=== PATIENT | female | born 1945 | race Caucasian/White ===

== ENCOUNTER → 2019-01-12 | Outpatient (CLI) | payer MEDICARE, OTHER, SELFPAY ==
--- NOTE | 2019-01-12 14:01 | BI_ITS ---
MAMMOGRAPHY - BILATERAL SCREENING 3-D TOMOSYNTHESIS REASON FOR EXAM: Female, 73 years old. Bilateral Screening 3-D tomosynthesis PERTINENT HISTORY: Great-grandmother at age 83 and maternal cousin at age 67 with breast cancer.. TECHNIQUE: 2-D mammograms and 3-D Tomosynthesis of the breast (s) were performed. CAD was performed. COMPARISON: January 23, 2016. FINDINGS: The breast composition is composed of scattered fibroglandular density. Scattered benign calcifications are seen. No dense spiculated masses or suspicious microcalcifications are identified. No architectural distortion is identified. There is no skin thickening or retraction There are stable, scattered, typically benign appearing calcifications. There is a stable subcentimeter right subareolar well-circumscribed nodule. There is a stable, 5.9 mm well-circumscribed nodule within the deep inner left breast.. There has been no significant change since the prior study. BI/SCREENING MAMM (CAD), BILAT IMPRESSION: No mammographic signs of malignancy. Routine yearly mammograms recommended. ASSESSMENT CATEGORY: BIRADS Category 2: Benign. A letter regarding these results will be sent to the patient by the facility within 30 days. FOLLOW UP RECOMMENDATION: Yearly follow up mammogram recommended. (A) Approximately 10% of breast cancers are not detected by mammography. A normal mammogram should not delay biopsy of a clinically suspicious abnormality. Electronically Signed: Ayaz Hooper MD at 14:47 EDT , Service support ,
--- NOTE | 2019-01-12 14:12 | BD_ITS ---
STUDY: DUAL ENERGY X-RAY ABSORPTIOMETRY / DXA REASON FOR EXAM: Female, 73 years old. Osteoporosis screening. TECHNIQUE: Bone Mineral Density (BMD) measurements of lumbar spine and bilateral hips were obtained. COMPARISON: June 16, 2016. FINDINGS: Lumbar Spine (L1-L3): g/cm2 (0.909) / T-score (-2.2) / Z-score (-0.5) Left Femur Total: g/cm2 (0.811) / T-score (-1.6) / Z-score (0.0) Left Femoral Neck: g/cm2 (0.846) / T-score (-1.4) / Z-score (0.4) Right Femur Total: g/cm2 (0.831) / T-score (-1.4) / Z-score (0.2) Right Femoral Neck: g/cm2 (0.805) / T-score (-1.7) / Z-score (0.1) Compared with the T-Scores on the most recent prior examination were: Lumbar Spine (L1-L4): There has been worsening of bone density since the previous examination. Left Femur Total: .There has been minimal worsening of bone density since the previous examination. Right Femur Total: .There has been worsening of bone density since the previous examination. BD/Dexa Bone Density Study IMPRESSION: The patient is considered osteoporotic based on L2 vertebral body T score of -2.6 as outlined below according to World Syed Organization (WHO) criteria with a high fracture risk. There has been worsening of bone density since the previous examination. Reference Information: The T-score is the number of standard deviations above or below the standard which is normal for young adults at their peak bone mineral density. The World Health Organization (WHO) interprets the T-scores as follows: Above -1 Normal bone density Between -1 and -2.5 Osteopenia Equal to / or below -2.5 Osteoporosis As a practical clinical guideline, osteopenia may be graded as follows: Mild -1 through -1.5 Moderate -1.6 through -2.0 Severe -2.1 through -2.4 The Z-score is the number of standard deviations above or below age-matched controls. A Z-score of less than -1.5 would be considered abnormal. References: 1. NIH Osteoporosis and Related Bone Diseases http://www.osteo.org 2. International Society for Clinical Densitometry http://www.iscd.org 3. National Osteoporosis Foundation http://www.nof.org Electronically Signed: Ayaz Hooper MD at 11:22 EDT , Service support ,
== END | disposition home or self-care (01) ==
PROVIDERS: Family Provider Nurse Practitioner; PCP Nurse Practitioner; Referring Provider Nurse Practitioner; Visit Provider Nurse Practitioner
DX: Z12.31 Encounter for screening mammogram for malignant neoplasm of breast (principal); Z78.0 Asymptomatic menopausal state
CPT/HCPCS: 77063; 77067; 77080

== ENCOUNTER → 2019-02-27 | Outpatient (CLI) | payer MEDICARE, OTHER, SELFPAY ==
--- NOTE | 2019-02-27 11:00 | US_ITS ---
STUDY: ULTRASOUND BREAST - LEFT REASON FOR EXAM: Female, 73 years old. Abnormal screening mammogram. TECHNIQUE: Axial and longitudinal images of the LEFT breast were performed with a high resolution ultrasound transducer. COMPARISON: Comparison is made with prior mammogram dated January 12, 2019 and prior ultrasound of the left breast dated April 12, 2017. FINDINGS: LEFT Breast: There is a 4 mm x 6 mm x 2 mm well-defined hypoechoic nodule at the 11:00 position in the breast at 3 centimeters from the nipple. This most likely represents a small lymph node. A follow-up sonogram in 4 months is recommended. US/Breast Limited Unilateral IMPRESSION: 4 mm x 6 mm x 2 mm well-defined hypoechoic nodule at the 11:00 position of the breast at 3 cm from the nipple. A four-month follow-up sonogram is recommended. ASSESSMENT CATEGORY: BIRADS Category 3: Probably Benign - Short-Interval Follow-up Suggested. A letter regarding these results will be sent to the patient by the facility within 30 days. Electronically Signed: Syed Lemus, at 13:10 EDT , Service support ,
== END | disposition home or self-care (01) ==
LOC: OPUS 10:58
PROVIDERS: Family Provider Nurse Practitioner; PCP Nurse Practitioner; Referring Provider Nurse Practitioner; Visit Provider Nurse Practitioner
DX: R92.8 Other abnormal and inconclusive findings on diagnostic imaging of breast (principal); N63.0 Unspecified lump in unspecified breast
CPT/HCPCS: 76642

== ENCOUNTER → 2019-05-22 16:14 | Outpatient (CLI) | payer MEDICARE, SELFPAY ==
[2017-04-28 06:30] VITALS: BMI 27.1
--- NOTE | 2019-05-22 16:20 | RAD_ITS ---
STUDY: X-RAY - LEFT ANKLE REASON FOR EXAM: Left ankle pain, surgery 3 years ago. TECHNIQUE: 3 view(s) of the ankle. COMPARISON: Radiographs of the foot 09/10/2015. FINDINGS: There is osteopenia. Normal visualized distal tibia and fibula. There is enthesopathy of the medial malleolus. There is an anterior osteophyte of the distal tibia without joint space narrowing of the tibiotalar articulation. There is intact orthopedic hardware with osseous fusion of the posterior subtalar, talonavicular and calcaneocuboid articulations. There is a small plantar calcaneal enthesophyte. The soft tissue structures are unremarkable. RAD/Ankle min 3 Views IMPRESSION: Osseous fusion of the posterior subtalar, talonavicular and calcaneocuboid articulations. Anterior osteophyte of the distal tibia. Enthesopathy of the calcaneus and medial malleolus. Electronically Signed: Sunday Brannon MD at 15:38 EDT Tel , Service support ,
== END ==
PROVIDERS: Family Provider Nurse Practitioner; PCP Nurse Practitioner; Referring Provider Nurse Practitioner; Visit Provider Nurse Practitioner
DX: M25.572 Pain in left ankle and joints of left foot (principal)
CPT/HCPCS: 73610

== ENCOUNTER → 2019-08-25 14:51 | Outpatient (CLI) | payer MEDICARE, SELFPAY ==
--- NOTE | 2019-08-25 14:56 | US_ITS ---
STUDY: ULTRASOUND BREAST - LEFT REASON FOR EXAM: Female, 73 years old. Four-month follow-up examination. TECHNIQUE: Axial and longitudinal images of the LEFT breast were performed with a high resolution ultrasound transducer. # OF IMAGES: 23 COMPARISON: Comparison is made with prior ultrasound of the left breast dated February 27, 2019. FINDINGS: LEFT Breast: Stable appearance of the 4 mm x 7 mm x 2 mm well-defined hypoechoic nodule at the 11:00 position of the breast at 3 cm from the nipple. This appears to be a small benign appearing lymph node. Adjacent to this, there is a 5 mm x 6 mm x 4 mm well-defined hypoechoic nodule at the 11:00 position the breast at 4 cm from the nipple. A biopsy is recommended for further evaluation. US/Breast Limited Unilateral IMPRESSION: Stable nodule at the 11:00 position of the breast at 3 cm from nipple. New 5 mm x 6 mm x 4 mm hypoechoic well-defined nodule at the 11:00 position the breast at 4 cm from the nipple. Biopsy is recommended. ASSESSMENT CATEGORY: BIRADS Category 4: Suspicious - Biopsy Should Be Considered. A letter regarding these results will be sent to the patient by the facility within 30 days. Electronically Signed: Syed Lemus, at 8:45 EST , Service support ,
== END ==
PROVIDERS: Family Provider Nurse Practitioner; PCP Nurse Practitioner; Referring Provider Nurse Practitioner; Visit Provider Nurse Practitioner
DX: R92.8 Other abnormal and inconclusive findings on diagnostic imaging of breast (principal)
CPT/HCPCS: 76642

== ENCOUNTER → 2020-02-15 13:18 | Outpatient (CLI) | payer MEDICARE, SELFPAY ==
[2017-04-28 06:30] VITALS: BMI 27.1
--- NOTE | 2020-02-15 13:20 | BI_ITS ---
MAMMOGRAPHY - BILATERAL DIAGNOSTIC REASON FOR EXAM: Female, 74 years old. Six-month follow-up for ultrasound-guided left breast biopsy. PERTINENT HISTORY: Great-grandmother with breast cancer. TECHNIQUE: Digital bilateral breast kaylin (3D mammographic acquisition) in the CC and MLO projections. 2-D mediolateral oblique (MLO) and craniocaudad (CC) views of both breasts were obtained. CAD: Full Field Digital Mammography with Computer Added Detection was performed. COMPARISON: Comparison is made with prior examination dated January 12, 2019 and August 25, 2019. FINDINGS: Breast Composition: There are scattered areas of fibroglandular density. There are no dominant masses or suspicious calcifications. A tissue clip marker is seen within a small nodule in the central medial portion of the left breast. The nodular densities decrease in size as compared to prior study. No other significant abnormalities are identified. BI/DIAG MAMM W/CAD, BILAT IMPRESSION: Status post ultrasound-guided biopsy of a nodular density in the central medial portion of the left breast as described. The nodular density has decreased in size. One year follow-up recommended. (A) ASSESSMENT CATEGORY: BIRADS Category 2: Benign. A letter regarding these results will be sent to the patient by the facility within 30 days. Approximately 10% of breast cancers are not detected by mammography. A normal mammogram should not delay biopsy of a clinically suspicious abnormality. Electronically Signed: Syed Lemus, at 14:40 EDT , Service support ,
--- NOTE | 2020-02-15 13:20 | US_ITS ---
STUDY: ULTRASOUND BREAST - LEFT REASON FOR EXAM: Female, 74 years old. Prior left ultrasound-guided breast biopsy. TECHNIQUE: Axial and longitudinal images of the LEFT breast were performed with a high resolution ultrasound transducer. # OF IMAGES: 14 COMPARISON: Comparison is made with prior mammogram done earlier in the day as well as prior sonogram of the left breast dated August 25, 2019. FINDINGS: LEFT Breast: There is a 7 mm x 3 mm x 3 mm well-defined hypoechoic nodule at 11:00 position breast 3 cm from the nipple. This most likely represents a small lymph node. Adjacent to this, there is a stable 8 mm x 7 mm 2 mm well-defined hypoechoic nodule at 11:00 position of the breast 4 cm from nipple. A tissue clip marker is seen within it. US/Breast Limited Unilateral IMPRESSION: Stable sonogram. Prior ultrasound-guided biopsy of the 8 mm x 7 mm x 2 mm nodular density at the 11:00 position of the breast for sinusitis on the nipple. ASSESSMENT CATEGORY: BIRADS Category 2: Benign. A letter regarding these results will be sent to the patient by the facility within 30 days. Electronically Signed: Syed Lemus, at 15:15 EDT , Service support ,
== END ==
PROVIDERS: PCP Nurse Practitioner; Referring Provider Surgery; Visit Provider Surgery
DX: R92.8 Other abnormal and inconclusive findings on diagnostic imaging of breast (principal)
CPT/HCPCS: 76642; 77062; 77066; G0279

== ENCOUNTER → 2021-02-12 07:06 | Outpatient (CLI) | payer MEDICARE, SELFPAY ==
[2020-02-22 13:39] VITALS: BMI 27.1
--- NOTE | 2021-02-12 07:11 | ECHOD_ITS ---
Reason For Study: Palps Procedure This was a 2D Doppler, Color Flow transthoracic echocardiogram. Exam performed in department. Left Ventricle Normal LV size. Left ventricular systolic function is normal. The estimated ejection fraction is 60 %. Stage 2 diastolic dysfunction. No regional wall motion abnormalities noted. Right Ventricle Normal RV size. Normal systolic function. Atria Normal left atrium. Normal right atrium. Mitral Valve Normal mitral valve. Trivial eccentric mitral valve insufficiency. Tricuspid Valve Normal tricuspid valve. Mild tricuspid valve insufficiency. Pulmonary artery systolic pressure is 28 mmHg. Aortic Valve Normal aortic valve. Trisinus/trileaflet aortic valve. Pulmonic Valve Normal pulmonic valve. Great Vessels Normal aortic root. The pulmonary artery is normal size. Normal inferior vena cava. Pericardium/Pleural No pericardial effusion. MMode/2D Measurements & Calculations LVIDd: 3.8 cm IVSd: 1.1 cm Ao root diam: 3.0 cm LVIDs: 2.2 cm LVPWd: 0.95 cm RVDd: 3.8 cm FS: 41.2 % LAV(MOD-bp): 45.0 ml LVAd ap4: 25.6 cm2 SV(MOD-sp4): 45.7 ml LAV(MOD-bp) Indexed: 26.1 ml/m2 LVLd ap4: 7.3 cm LAV(MOD-sp2): 42.3 ml EDV(MOD-sp4): 71.9 ml LAV(MOD-sp4): 41.5 ml EDV(sp4-el): 77.0 ml LVAs ap4: 14.1 cm2 LVLs ap4: 6.5 cm ESV(MOD-sp4): 26.1 ml ESV(sp4-el): 26.2 ml EF(MOD-sp4): 63.6 % EF(sp4-el): 66.0 % SV(sp4-el): 50.8 ml LA A4 area: 15.6 cm2 LA dimension(2D): 4.0 cm RA A4 area: 13.9 cm2 Doppler Measurements & Calculations MV E max jemal: 89.1 cm/sec Lat Peak E' Jemal: 10.7 cm/sec Med Peak E' Jemal: 5.6 cm/sec MV A max jemal: 70.2 cm/sec E/E' lat: 8.3 E/E' med: 15.8 MV E/A: 1.3 Ao V2 max: 100.7 cm/sec LV V1 max: 80.3 cm/sec PA V2 max: 78.4 cm/sec Ao max P.1 mmHg LV V1 max P.6 mmHg TR max jemal: 242.0 cm/sec TR max P.5 mmHg ECHO/Echo Complete Interpretation Summary Normal LV size. Left ventricular systolic function is normal. The estimated ejection fraction is 60 %. Mild tricuspid valve insufficiency. Stage 2 diastolic dysfunction. Structurally normal valves. Ordering Physician: Ericka Akhtar Referring Physician: Ericka Akhtar Performed By: Elda Valencia RDCS
--- NOTE | 2021-02-12 13:03 | STRESSREP ---
Stress Test Report No clinical angina was noted. Myocardial perfusion protocol. Pharmacologic myocardial perfusion stress test. 75-year-old lady with a history of chest discomfort. Stress protocol: Resting EKG demonstrates sinus bradycardia with a rate of 55 bpm normal intervals are noted resting blood pressure is 128/76 mmHg. 0.4 mg of regadenoson was infused per usual protocol followed by rapid intravenous saline flush injection continuous EKG monitoring was performed. The maximum heart rate attained was 80 bpm which was 54% of maximum predicted heart rate the maximum workload was 1 metabolic equivalent. At rest there were no ST or T wave changes noted to suggest ischemia and at peak infusion nonspecific ST changes were noted with did not meet the criteria for ischemia. Myocardial perfusion protocol. 11.1 mCi of technetium 99m sestamibi was injected at rest. 0.4 mg of regadenoson was infused per usual protocol. At peak infusion 32.9 mCi of technetium 99m sestamibi was injected stress and rest images were reconstructed and compared in the short axis vertical long and horizontal long axis. Gated images were obtained. Perfusion SPECT analysis: Review of the stress images demonstrate normal uptake of tracer noted in all areas of the myocardium. The resting images similarly demonstrate normal uptake of tracer noted in all areas of the myocardium. No areas of reversibility are noted to suggest ischemia. No motion artifact is noted and no GI artifact is present. Gated SPECT analysis: The gated ejection fraction is noted to be 85%. Conclusion: Normal pharmacologic myocardial perfusion stress test. Preserved ejection fraction.
== END ==
PROVIDERS: PCP Nurse Practitioner; Referring Provider Nurse Practitioner; Visit Provider Nurse Practitioner
DX: R94.31 Abnormal electrocardiogram [ECG] [EKG] (principal); R00.2 Palpitations
CPT/HCPCS: 78452; 93017; 93306; A9500; A4216; J2785

== ENCOUNTER → 2021-08-06 11:29 | Outpatient (CLI) | payer MEDICARE, SELFPAY ==
--- NOTE | 2021-08-06 11:31 | BI_ITS ---
MAMMOGRAPHY - BILATERAL SCREENING 3-D TOMOSYNTHESIS REASON FOR EXAM: Female, 75 years old. Routine screening PERTINENT HISTORY: Great grandmother with breast cancer.. TECHNIQUE: 2-D mammograms and 3-D Tomosynthesis of the breast (s) were performed. CAD was performed. COMPARISON: 02/15/2020 FINDINGS: The breast composition is composed of scattered fibroglandular density. Scattered benign calcifications are seen. No dense spiculated masses or suspicious microcalcifications are identified. No architectural distortion is identified. There is no skin thickening or retraction. There has been no significant change since the prior study. BI/SCRN MAMM (CAD)W/JONATHAN BILAT IMPRESSION: No mammographic signs of malignancy. Routine yearly mammograms recommended. ASSESSMENT CATEGORY: BIRADS Category 1: Negative. A letter regarding these results will be sent to the patient by the facility within 30 days. FOLLOW UP RECOMMENDATION: Yearly follow up mammogram recommended. (A) Approximately 10% of breast cancers are not detected by mammography. A normal mammogram should not delay biopsy of a clinically suspicious abnormality. Electronically Signed: Helder Coy MD at 14:25 EST , Service support ,
--- NOTE | 2021-08-06 11:32 | BD_ITS ---
STUDY: DUAL ENERGY X-RAY ABSORPTIOMETRY / DXA REASON FOR EXAM: Female, 75 years old. 627.8Menopausal postmenopausalBONE DENSITY REASON FOR EXAM TECHNIQUE: Bone Mineral Density (BMD) measurements of lumbar spine and bilateral hips were obtained. COMPARISON: Comparison is made with prior study dated 01/12/2019. FINDINGS: Lumbar Spine (L1-L4): g/cm2 (0.900) / T-score (-1.3) / Z-score (1.0) Findings are suggestive of osteopenia with a low fracture risk. Left Femur Total: g/cm2 (0.723) / T-score (-1.8) / Z-score (0.0) Left Femoral Neck: g/cm2 (0.693) / T-score (-1.4) / Z-score (0.7) Right Femur Total: g/cm2 (0.757) / T-score (-1.5) / Z-score (0.3) Right Femoral Neck: g/cm2 (0.6-0) / T-score (-2.1) / Z-score (0.0) The T-Scores on the most recent prior examination were: Lumbar Spine (L1-L4): There has been improvement of bone density since the previous examination. Left Femur Total: which represents a worsening of 3.6%. Right Femur Total: which represents a worsening of 1.6%. BD/Dexa Bone Density Study IMPRESSION: The patient is considered osteopenic as outlined below according to World Syed Organization (WHO) criteria with a moderate fracture risk. There has been worsening of bone density since the previous examination. Reference Information: The T-score is the number of standard deviations above or below the standard which is normal for young adults at their peak bone mineral density. The World Health Organization (WHO) interprets the T-scores as follows: Above -1 Normal bone density Between -1 and -2.5 Osteopenia Equal to / or below -2.5 Osteoporosis As a practical clinical guideline, osteopenia may be graded as follows: Mild -1 through -1.5 Moderate -1.6 through -2.0 Severe -2.1 through -2.4 The Z-score is the number of standard deviations above or below age-matched controls. A Z-score of less than -1.5 would be considered abnormal. References: 1. NIH Osteoporosis and Related Bone Diseases www osteo.org 2. International Society for Clinical Densitometry www iscd.org 3. National Osteoporosis Foundation www nof.org Electronically Signed: Syed Lemus MD at 15:30 EST , Service support ,
== END ==
PROVIDERS: PCP Nurse Practitioner; Referring Provider Nurse Practitioner; Visit Provider Nurse Practitioner
DX: Z12.31 Encounter for screening mammogram for malignant neoplasm of breast (principal); Z78.0 Asymptomatic menopausal state
CPT/HCPCS: 77063; 77067; 77080

== ENCOUNTER → 2022-09-22 | Outpatient (CLI) | payer MEDICARE, SELFPAY ==
--- NOTE | 2022-09-22 14:06 | BI_ITS ---
MAMMOGRAPHY - BILATERAL SCREENING REASON FOR EXAM: Female, 76 years old. Routine annual screening examination. PERTINENT HISTORY: Great grandmother with breast cancer. TECHNIQUE: Digital bilateral breast jonathan (3D mammographic acquisition) in the CC and MLO projections. 2-D mediolateral oblique (MLO) and craniocaudad (CC) views of both breasts were obtained. CAD: Full Field Digital Mammography with Computer Added Detection was performed. COMPARISON: Comparison is made with prior study 08/06/2021 and 02/15/2020. FINDINGS: Breast Composition: There are scattered areas of fibroglandular density. There are no dominant masses or suspicious calcifications. A tissue clip marker is seen in the slightly upper medial portion of the left breast. No other significant abnormalities are identified. There has been no significant change since the prior study. BI/SCRN MAMM (CAD)W/JONATHAN BILAT IMPRESSION: Stable bilateral screening mammogram. Yearly follow-up mammogram recommended. (A) ASSESSMENT CATEGORY: BIRADS Category 2: Benign. A letter regarding these results will be sent to the patient by the facility within 30 days. Approximately 10% of breast cancers are not detected by mammography. A normal mammogram should not delay biopsy of a clinically suspicious abnormality. [id number] Electronically Signed: Syed Lemus MD at 15:05 EST ,
== END | disposition home or self-care (01) ==
LOC: OPBI 14:02
PROVIDERS: PCP Nurse Practitioner; Visit Provider Nurse Practitioner Family
DX: Z12.31 Encounter for screening mammogram for malignant neoplasm of breast (principal); Z80.3 Family history of malignant neoplasm of breast
CPT/HCPCS: 77063; 77067

== ENCOUNTER → 2023-10-26 | Outpatient (CLI) | payer MEDICARE, SELFPAY ==
--- NOTE | 2023-10-26 13:23 | BI_ITS ---
MAMMOGRAPHY - BILATERAL SCREENING REASON FOR EXAM: Female, 77 years old. Routine annual screening examination. PERTINENT HISTORY: Grandmother with breast cancer. History of prior left ultrasound-guided breast biopsy. TECHNIQUE: Digital bilateral breast jonathan (3D mammographic acquisition) in the CC and MLO projections. 2-D mediolateral oblique (MLO) and craniocaudad (CC) views of both breasts were obtained. CAD: Full Field Digital Mammography with Computer Added Detection was performed. COMPARISON: Comparison is made with prior study dated September 22, 2022 and August 06, 2021. FINDINGS: Breast Composition: There are scattered areas of fibroglandular density. There are no dominant masses or suspicious calcifications. Once again, a tissue clip marker is seen in the slightly upper medial portion of the left breast secondary to prior ultrasound-guided breast biopsy. No other significant abnormalities are identified. There has been no significant change since the prior study. BI/SCRN MAMM (CAD)W/JONATHAN BILAT IMPRESSION: Stable bilateral screening mammogram. Yearly follow-up mammogram recommended. (A) ASSESSMENT CATEGORY: BIRADS Category 2: Benign. A letter regarding these results will be sent to the patient by the facility within 30 days. Approximately 10% of breast cancers are not detected by mammography. A normal mammogram should not delay biopsy of a clinically suspicious abnormality. [id number] Electronically Signed: Syed Lemus MD at 14:25 EST ,
--- NOTE | 2023-10-26 13:33 | BD_ITS ---
STUDY: DUAL ENERGY X-RAY ABSORPTIOMETRY / DXA REASON FOR EXAM: Female, 77 years old. 733.00OsteoporosisBONE DENSITY REASON FOR EXAM TECHNIQUE: Bone Mineral Density (BMD) measurements of lumbar spine and bilateral hips were obtained. COMPARISON: Comparison is made with prior study dated August 06, 2021. FINDINGS: Lumbar Spine (L1-L4): g/cm2 (0.819) / T-score (-2.1) / Z-score (0.4) Findings are suggestive of osteopenia with a high fracture risk. Left Femur Total: g/cm2 (0.671) / T-score (-2.2) / Z-score (-0.3) Left Femoral Neck: g/cm2 (0.680) / T-score (-1.5) / Z-score (0.6) Right Femur Total: g/cm2 (0.721) / T-score (-1.8) / Z-score (0.1) Right Femoral Neck: g/cm2 (0.661) / T-score (-1.7) / Z-score (0.5) The T-Scores on the most recent prior examination were: Lumbar Spine (L1-L4): There has been worsening of bone density since the previous examination. Left Femur Total: which represents a worsening of 7.2%. Right Femur Total: which represents a worsening of 4.7%. BD/Dexa Bone Density Study IMPRESSION: The patient is considered osteopenic as outlined below according to World Syed Organization (WHO) criteria with a high fracture risk. There has been worsening of bone density since the previous examination. Reference Information: The T-score is the number of standard deviations above or below the standard which is normal for young adults at their peak bone mineral density. The World Health Organization (WHO) interprets the T-scores as follows: Above -1 Normal bone density Between -1 and -2.5 Osteopenia Equal to / or below -2.5 Osteoporosis As a practical clinical guideline, osteopenia may be graded as follows: Mild -1 through -1.5 Moderate -1.6 through -2.0 Severe -2.1 through -2.4 The Z-score is the number of standard deviations above or below age-matched controls. A Z-score of less than -1.5 would be considered abnormal. References: 1. NIH Osteoporosis and Related Bone Diseases www osteo.org 2. International Society for Clinical Densitometry www iscd.org 3. National Osteoporosis Foundation www nof.org Electronically Signed: Syed Lemus MD at 14:38 EST ,
== END | disposition home or self-care (01) ==
PROVIDERS: PCP Nurse Practitioner; Referring Provider Nurse Practitioner Family; Visit Provider Nurse Practitioner Family
DX: Z12.31 Encounter for screening mammogram for malignant neoplasm of breast (principal); M81.0 Age-related osteoporosis without current pathological fracture; Z80.3 Family history of malignant neoplasm of breast
CPT/HCPCS: 77063; 77067; 77080

== ENCOUNTER 2024-02-13 17:58 | Inpatient (IN) | payer MEDICARE, SELFPAY ==
[2024-02-13] VITALS (7 sets, daily range): BP systolic 141–165; BP diastolic 63–85; PULSE 58–83; RESP 16–19; TEMP 36.4–36.7; O2SAT 99–100; BMI 26.6; BMI 26.1
--- NOTE | 2024-02-13 18:25 | EKG12_ITS ---
Test Reason : CONFUSION Blood Pressure : / mmHG Vent. Rate : 058 BPM Atrial Rate : 058 BPM P-R Int : 174 ms QRS Dur : 080 ms QT Int : 436 ms P-R-T Axes : 043 025 036 degrees QTc Int : 428 ms Sinus bradycardia Otherwise normal ECG Confirmed by FLORIAN LA, ASHLY ([id number]), managing editor KEYSHAWN DUENAS ([id number]) on 02/15/2024 2:04:36 PM Referred By: Confirmed By:ASHLY DU MD
--- NOTE | 2024-02-13 18:25 | CT_ITS ---
We are attempting to reach an attending provider to discuss findings. An addendum with communication details will be sent when the communication is complete. STUDY: CT BRAIN WITHOUT CONTRAST REASON FOR EXAM: Female, 78 years old. memory problems Individualized dose optimization techniques were used for this CT. TECHNIQUE: Transaxial CT imaging of the brain was performed without administration of intravenous contrast material. COMPARISON: 05/31/2009 FINDINGS: There are calcifications around the carotid artery. These are noted in the cavernous carotid arteries. Normal calvarium. Normal soft tissues. There is mild cerebral atrophy with widening of the extra-axial spaces and ventricular dilatation. There are areas of decreased attenuation within the white matter tracts of the supratentorial brain, consistent with microvascular disease changes. Low density in the left caudate head and basal ganglia may represent an acute ischemic infarct MRI can better evaluate Normal brainstem. There is mild cerebellar atrophy. There is no intracranial hemorrhage. Normal visualized paranasal sinuses. ASPECTS Score for Acute Strokes: 05/23 CT/Brain/Head without Contrast IMPRESSION: Low density in the left caudate head and basal ganglia may represent an acute ischemic infarct MRI can better evaluate Electronically Signed: Micha Jasso MD at 19:18 EDT ,
--- NOTE | 2024-02-13 18:26 | EX.ED.DYSGE1 ---
HPI History of Present Illness Chief Complaint: Neuro S/Sx Detail of Chief Complaint: Memory loss Informant: patient and family Onset/Context/Timing Onset: Days Narrative Narrative: Patient presents secondary to memory problems for the past 5 days or so. She reportedly has not been able to remember things as simple as her name, birthdate, Social Security number. Family states that she could not remember how to put her seatbelt on or how to close the car door. She has not had any recent injury or fall. She reportedly was complaining of some mild congestion but no fever or chills. Patient denies any pain at this time and does not feel ill. She is able to tell me her medical history and I did verify with family at bedside that that information was correct. [facility] Medical History Breast lump Breast pain, left Abnormal ultrasound of breast Abnormal mammogram of left breast Acid reflux Constipation Nausea Abdominal pain Cough Sleep apnea Shortness of breath Anxiety Depression Numbness and tingling Arthritis Back problem Home Medications ?Medication ?Instructions ?Recorded ?Last Taken ?Type temazepam 30 mg capsule 30 mg PO QHS 04/23/17 04/27/17 History citalopram 20 mg tablet (Celexa) 20 mg PO DAILY 02/22/20 Unknown History ergocalciferol (vitamin D2) 1,250 1,250 mcg PO 2XW 02/22/20 Unknown History mcg (50,000 unit) capsule mecobalamin (vitamin B12) 1,000 1,000 mcg PO DAILY 02/22/20 Unknown History mcg chewable tablet prednisolone acetate 1 % eye 1 drp ophthalmic (eye) TID 02/22/20 Unknown History drops,suspension Allergy/AdvReac Type Severity Reaction Status Date / Time Sulfa (Sulfonamide AdvReac Nausea Verified 02/13/24 18:00 Antibiotics) Family History Mother Arthritis Brother Cancer Lung cancer Father Lung cancer Cancer Myocardial infarction Heart disease Surgical History Hx of colonoscopy Hx of left breast biopsy Hx of hysterectomy Hx of total knee replacement Hx of foot surgery History of colostomy reversal History of creation of ostomy History of partial colectomy History of throat surgery Hx of eye surgery Social History Smoking Status: Former smoker second hand exposure: No alcohol intake: current alcohol intake frequency: a few times a month substance use type: does not use caffeine: Yes what type of physical activity do you participate in: none frequency: does not exercise ROS ROS ED Constitutional Constitutional ED: Denies chills or fever(s) Eyes Eyes: Denies discharge from eye(s) ENT ENT ED: Reports rhinorrhea and other Details: Congestion ; Denies discharge from eye(s) or sore throat Cardiovascular Cardiovascular: Denies chest pain or palpitations Respiratory/Chest Respiratory/Chest: Denies cough or dyspnea Gastrointestinal Gastrointestinal: Denies abdominal pain, nausea or vomiting Genitourinary Genitourinary ED: Denies dysuria Musculoskeletal Musculoskeletal: Denies back pain or extremity pain Integumentary Denies Abrasions or rash Neurologic Neurologic: Reports weakness; Denies headache(s) Psychiatric Psychiatric: Denies anxiety or depression Allergic/Immunologic Allergic/Immunologic ED: Denies lip swelling or urticaria EXAM Physical Exam Const Vital Signs: 02/13/24 18:01 Temperature 97.7 F L Temperature Source Temporal Pulse Rate 83 Respiratory Rate 18 Blood Pressure 165/72 H Blood Pressure Mean 103 Pulse Ox 100 Oxygen Delivery Method Room Air Positive well nourished and well developed General Appearance ED: well developed HEENT Reports moist mucous membranes Eyes EOMs intact bilaterally Neck no lymphadenopathy Chest Wall inspection of chest normal and palpation of chest normal Resp normal respiratory effort and clear to auscultation bilaterally Cardio regular rate and regular rhythm GI non-tender Palpation: soft Extremity Extremity Narrative: Chronic arthritic changes to the hands. Neuro oriented x3 Neuro Narrative: NIH equals 0 at this time. Psych mental status grossly normal Skin no rashes or lesions noted MDM MDM MDM Narrative Medical decision making narrative: Patient placed on monitor and storage bin tender. EKG obtained to evaluate for cardiac arrhythmia/ischemia. IV line established. Labwork obtained to evaluate for leukocytosis, anemia, and electrolyte derangement. Urinalysis obtained to evaluate for infection/hematuria. CT scan of the head obtained to evaluate for any acute intracranial abnormalities. History & Record Review Discussion w/independent historian: Patient and Family Additional record(s) reviewed:: Prior labs Lab Data Attestation: I reviewed the patient's lab results. Labs: Laboratory Results - last 24 hr 02/13/24 02/13/24 02/13/24 18:17 18:30 19:34 WBC 4.8 RBC 4.13 L Hgb 12.3 Hct 37.9 MCV 91.8 MCH 29.8 MCHC 32.5 RDW Std Deviation 44.8 H RDW Coeff of Garfield 13.2 Plt Count 237 MPV 9.8 Immature Gran % (Auto) 0.400 Neut % (Auto) 66.8 Lymph % (Auto) 21.3 Parke % (Auto) 8.0 Eos % (Auto) 2.9 Baso % (Auto) 0.6 Absolute Neuts (auto) 3.2 Absolute Lymphs (auto) 1.01 Nucleated RBC % 0 Sodium 133 L Potassium 3.6 Chloride 102 Carbon Dioxide 24.0 Anion Gap 7 BUN 15 Creatinine 1.12 H Estim Creat Clear Calc 36.07 Est GFR (MDRD) Af Amer 61 Est GFR (MDRD) Non-Af 50 L BUN/Creatinine Ratio 13.4 Glucose 117 H Calcium 9.4 Total Bilirubin 0.40 Direct Bilirubin 0.18 AST 17 ALT 16 Alkaline Phosphatase 52 Total Protein 7.2 Albumin 3.6 Globulin 3.6 Urine Color Yellow Urine Clarity Clear Urine pH 7.0 Ur Specific [place] 1.010 Urine Protein Negative Urine Glucose (UA) Normal Urine Ketones 5 H Urine Occult Blood 25 H Urine Nitrite Negative Urine Bilirubin Negative Urine Urobilinogen 1 H Ur Leukocyte Esterase 100 H Urine RBC 0-5 SEEN Urine WBC 5-10 SEEN Ur Squamous Epith Cells 0-5 SEEN Urine Bacteria 0 SEEN Urine Mucus 0 SEEN POC Glucose 136 H Radiography Chest X-Ray - ED: 2 View, Read by ED Physician, Chronic Changes and No Infiltrates Diagnostic Testing: Clinical Impression(s) from Imaging Studies Brain CT 02/13/24 18:25 IMPRESSION: Low density in the left caudate head and basal ganglia may represent an acute ischemic infarct MRI can better evaluate Electronically Signed: Micha Jasso MD at 19:18 EDT , ADDENDUM: 02/13/24 193 IMPRESSION: Low density in the left caudate head and basal ganglia may represent an acute ischemic infarct MRI can better evaluate N.B. : The above Results were Read Back by Micha Jasso MD to Rashmi Stephen MD, and understanding confirmed on 02/13/2024 19:28:16 (ET). Electronically Signed: Micha Jasso MD at 19:18 EDT , Chest X-Ray 02/13/24 18:45 IMPRESSION: There are no acute findings. Electronically Signed: Micha Jasso MD at 19:22 EDT , EKG Initial EKG: Attestation: I personally reviewed and interpreted this EKG as follows: Interpretation: Sinus Bradycardia (Sinus bradycardia 58 bpm. No acute ischemia.) Treatment and Re-Evaluation :: CBC was a white count of 4.8 with normal differential. Hemoglobin is 12.3. Chemistry studies significant for a sodium of 133. This is consistent with her prior values and not a new change. Glucose is 117. BUN is 15 and creatinine is 1.12. LFTs are unremarkable. Urinalysis reveals no evidence of infection. Two-view chest x-ray per my interpretation was chronic changes with no evidence of an infiltrate. Radiology interpretation reviewed and agrees. CT scan of the head reveals a low density in the left caudate head and basal ganglia which may represent an acute ischemic infarct. When I spoke with the radiologist and described her current symptoms he states that may be an old finding, but further workup is needed. Test results been discussed with patient and family at bedside. I will speak with hospitalist regarding admission. Discharge Plan Triage Chief Complaint: Neuro S/Sx ED Provider: Rashmi Stephen Dx/Rx/DC Orders Clinical Impression: Acute confusion, Cerebral infarct Prescriptions: No Action ergocalciferol (vitamin D2) 1,250 mcg (50,000 unit) capsule 1,250 mcg PO 2XW Patient Comments: TAKE 1 CAPSULE BY MOUTH TWICE A WEEK FOR 90 DAYS prednisolone acetate 1 % drops,suspension 1 drp OPHTHALMIC TID Patient Comments: INSTILL 1 DROP INTO EACH EYE THREE TIMES DAILY citalopram [Celexa] 20 mg tablet 20 mg PO DAILY Patient Comments: Only takes 3-4 times a week mecobalamin (vitamin B12) 1,000 mcg tablet,chewable 1,000 mcg PO DAILY temazepam 30 MG capsule 30 mg PO QHS Patient Comments: sleep Primary Care Provider: Yeimi Millard Referrals: Ericka Akhtar CARDIOPULMONARY SPECIALIST, CARDIOPULMONARY SPECIALIST-C [Non-Staff] - Print Language: Thai Disposition Disposition: Acute Care Hospital [facility]
[2024-02-13 18:38] LABS: Absolute Lymphocyte Count 1.01 X10^3/uL (0.83-4.51); Absolute Neutrophil Count 3.2 X10^3/uL (2.0-7.7); Basophil# 0.03 X10^3/uL; Basophil% 0.6 % (0-1); Eosinophil# 0.14 X10^3/uL; Eosinophils% 2.9 % (0-5); Hematocrit 37.9 % (37-47); Hemoglobin 12.3 g/dL (12.0-15.0); Lymphocyte # 1.01 X10^3/ul (0.83-4.51); Lymphocyte % 21.3 % (19-41); Mean Corp Hgb Conc 32.5 g/dL (32-36); Mean Corpuscular Hgb 29.8 pg (27.0-32.0); Mean Corpuscular Volume 91.8 fL (81-99); Mean Platelet Vol. 9.8 fl (6.2-12.0); Monocyte# 0.38 X10^3/uL; NRBC Flagged by Analyzer 0 % (0-5); Neutrophil # 3.17 X10^3/uL (2.7-7.7); Neutrophil % 66.8 % (47-70); Platelet Count 237 K/mm3 (150-450); RBC Distribution Width CV 13.2 % (11.6-14.6); RBC Distribution Width SD 44.8 fl (35.1-43.9); Red Blood Count 4.13 M/mm3 (4.2-5.4); White Blood Count 4.8 K/mm3 (4.4-11.0)
[2024-02-13 18:44] LABS: Bedside Glucose 136 mg/dL (74-106)
--- NOTE | 2024-02-13 18:45 | RAD_ITS ---
STUDY: XR Chest 2 Views 02/13/2024 6:49 PM REASON FOR EXAM: Female, 78 years old. cough COMPARISON: 01/23/2016 TECHNIQUE: XR Chest 2 Views FINDINGS: There is no demonstrated pleural abnormality. Normal heart size. Normal mediastinum. Normal arnaldo. Prominent appearing increased interstitial lung markings. Normal visualized pulmonary arteries. There is atherosclerotic calcification of the aortic arch with tortuosity. There are diffuse degenerative changes of the visualized thoracic spine. There is degenerative osteoarthritis of the bilateral shoulders. There are no acute findings of the upper abdomen. RAD/Chest PA and Lateral IMPRESSION: There are no acute findings. Electronically Signed: Micha Jasso MD at 19:22 EDT ,
[2024-02-13 18:57] LABS: AST(SGOT) 17 U/L (15-37); Alanine Aminotransfer ALT/SGPT 16 U/L (13-56); Albumin, Serum 3.6 g/dL (3.2-5.0); Alkaline Phosphatase 52 U/L (45-117); Anion Gap 7 (5-15); BUN 15 mg/dL (7-18); BUN/Creat Ratio 13.4 RATIO (10-20); Bilirubin, Direct 0.18 mg/dL (0.00-0.30); Calcium,Total 9.4 mg/dL (8.5-10.1); Chloride 102 mmol/L (98-107); Creatinine, Serum 1.12 mg/dL (0.55-1.02); EST Glomerular Filtration Rate 50 mL/min (>60); Est Glom Filt Rate - Afr Amer 61 mL/min (>60); Estimated Creatinine Clearance 36.07 ml/min; Globulin 3.6 g/dL (2.2-4.2); Glucose 117 mg/dL (74-106); Potassium 3.6 mmol/L (3.5-5.1); Protein, Total 7.2 g/dL (6.4-8.2); Sodium Level 133 mmol/L (136-145)
[2024-02-13 19:38] LABS: Bacteria 0 SEEN /hpf (None Seen); Mucous, Urine 0 SEEN /hpf (<or=2+)
[2024-02-13 19:41] LABS: Color, Urine Yellow (Yellow); Glucose, Dipstick Normal (Normal); Ketone-Dipstick 5 mg/dl (Negative); Leukocyte Esterase-Dipstick 100 /ul (Negative); Nitrite-Dipstick Negative (Negative); Occult Blood-Urine 25 /ul (Negative); Protein-Dipstick Negative (Negative); Urine Bilirubin Dipstick Negative (Negative); Urine Clarity Clear (Clear); Urine Urobilinogen 1 mg/dl (Normal)
[2024-02-13 19:47] LABS: Red Blood Cells-Urine 0-5 SEEN /hpf (0-5); Squamous Epithelial Cells - UA 0-5 SEEN /hpf (5-10); White Blood Cells 5-10 SEEN /hpf (0-5)
--- NOTE | 2024-02-13 19:58 | PCM.HP.STD ---
HPI - General General Date of Admission: 02/13/24 Date of Service: 02/13/24 Chief Complaint: Acute onset confusion. HPI Narrative The patient is a 78 y/o F w/ PMHx: Hx Diverticulitis s/p partial colectomy with transitional ostomy with reversal, Hx of benign throat tumor status postresection, Possible CKD unclear type, Anxiety and Depression, GERD, OA, ARVIND, Former tobacco use who presents to the [facility] [place] ED on 02/13/2024 with history of difficulty with memory impairment over the last approximate 5 days with inability to remember even simple things including her name, birthdate or Social Security number or even how to perform simple activities of daily living including closing the car door putting her seatbelt on with mild recent congestion but no upper respiratory illness symptoms beyond this prompting family to bring her in for evaluation. In the ED upon evaluation patient is able to give all the correct information and who is present notes that these symptoms have been waxing and waning. Currently he notes she seems more at her baseline and is able to give appropriate information. Workup in the ED included T97.7, heart 83, BP 165/72, respiratory rate 18, 100% on room air, CBC with WBC 4.8, hemoglobin 12.3, platelet 237 without marked shift, CMP with sodium 133, BUN/creatinine 15/1.12, GFR 50, glucose 117 otherwise unremarkable, CT of the brain with low-density in the left caudate head and basal ganglia possibly nutrition representative of an acute ischemic infarct but uncertain, chest x-ray with no acute cardiopulmonary findings, UA not marked appearing, EKG with sinus bradycardia with no acute evidence of ischemia. [facility] Medical History (Updated 02/13/24 @ 20:[address] Sisi Long MD) Benign tumor of throat History of diverticulitis Anxiety and depression Former tobacco use Abnormal mammogram of left breast Acid reflux Constipation Sleep apnea Arthritis Back problem Home Medications ?Medication ?Instructions ?Recorded ?Last Taken ?Type temazepam 30 mg capsule 30 mg PO QHS 04/23/17 04/27/17 History citalopram 20 mg tablet (Celexa) 20 mg PO DAILY 02/22/20 Unknown History ergocalciferol (vitamin D2) 1,250 1,250 mcg PO 2XW 02/22/20 Unknown History mcg (50,000 unit) capsule mecobalamin (vitamin B12) 1,000 1,000 mcg PO DAILY 02/22/20 Unknown History mcg chewable tablet prednisolone acetate 1 % eye 1 drp ophthalmic (eye) TID 02/22/20 Unknown History drops,suspension Allergy/AdvReac Type Severity Reaction Status Date / Time Sulfa (Sulfonamide AdvReac Nausea Verified 02/13/24 18:00 Antibiotics) Family History Mother Arthritis Brother Cancer Lung cancer Father Lung cancer Cancer Myocardial infarction Heart disease Surgical History Hx of colonoscopy Hx of left breast biopsy Hx of hysterectomy Hx of total knee replacement Hx of foot surgery History of colostomy reversal History of creation of ostomy History of partial colectomy History of throat surgery Hx of eye surgery Social History household members: spouse Smoking Status: Former smoker second hand exposure: No alcohol intake: current alcohol intake frequency: a few times a month substance use type: does not use caffeine: Yes what type of physical activity do you participate in: none frequency: does not exercise ROS ROS Narrative Admission Review of Systems: CONSTITUTIONAL: No weight loss, fever, chills, + weakness or fatigue. HEENT: Eyes: No visual loss, blurred vision, double vision or yellow sclerae. Ears, Nose, Throat: No hearing loss, sneezing, congestion, runny nose or sore throat. SKIN: No rash or itching, lesions, wounds. CARDIOVASCULAR: No chest pain, chest pressure or chest discomfort, palpitations, edema, orthopnea, syncopal events. RESPIRATORY: No shortness of breath, cough or sputum, wheezing, hemoptysis. GASTROINTESTINAL: No anorexia, nausea, vomiting or diarrhea, abdominal pain, melena, BRBPR. GENITOURINARY: No dysuria, frequency, urgency or retention. NEUROLOGICAL: + Acute confusion which appears to wax and wane. No headache, dizziness, syncope, paralysis, ataxia, numbness or tingling in the extremities, focal weakness, change in bowel or bladder control, seizure. MUSCULOSKELETAL: + muscle, back pain, joint pain or stiffness. HEMATOLOGIC: + Chronic anemia, easy bleeding/bruising. LYMPHATICS: No enlarged nodes. No history of splenectomy. PSYCHIATRIC: + History of anxiety and depression. ENDOCRINOLOGIC: No reports of sweating, cold or heat intolerance. No polyuria or polydipsia. ALLERGIES: No history of asthma, hives, eczema or rhinitis. Vital Signs Vital Signs Vital Signs: 02/13/24 18:01 Temperature 97.7 F L Temperature Source Temporal Pulse Rate 83 Respiratory Rate 18 Blood Pressure 165/72 H Blood Pressure Mean 103 Pulse Ox 100 Oxygen Delivery Method Room Air Weight Weight: 141 lb 4.8 oz Body Mass Index (BMI) 26.6 Physical Exam Narrative Physical Examination: General: Awake, alert, oriented x 3 and cooperative, seated upright in the ED bed, fatigued, currently appears more at her baseline per discussion with spouse and again is giving all appropriate orientation questions. Skin: Normal color, normal turgor, no icterus, no cyanosis. HEENT: AT/NC, EOMI, PERRLA, MMM, no carotid bruits or JVD noted. Lungs: Mildly diminished, greater bases, appropriate effort, no rales, ronchi or wheezing. Heart: Regular rate and rhythm; no gallop, rub audible. Abdomen: Soft, NTTP, ND, normal BS, no appreciated HSM. Extremities: No cyanosis, no clubbing, ankle chronic edema but nonpitting. Neurological: Patient awake, alert, oriented as noted, cognitive function appears improved, currently more baseline intact and who is present does confirm that the confusion has been waxing and waning; pupils equally reactive to light and accommodation, cranial nerves grossly normal, moving all 4 extremities, no focal deficits, strength preserved, finger-nose and [id number] appropriate, sensation intact, equivocal Babinski. Psychiatric: Affect appears mildly flat, no acute evidence of depressive or anxiety feelings but does have underlying history. Results Lab / Micro Data 02/13/24 18:30 02/13/24 18:30 Labs: Laboratory Results - last 24 hr 02/13/24 18:17: POC Glucose 136 H 02/13/24 18:30: WBC 4.8, RBC 4.13 L, Hgb 12.3, Hct 37.9, MCV 91.8, MCH 29.8, MCHC 32.5, RDW Std Deviation 44.8 H, RDW Coeff of [place]field 13.2, Plt Count 237, MPV 9.8, Immature Gran % (Auto) 0.400, Neut % (Auto) 66.8, Lymph % (Auto) 21.3, [place] % (Auto) 8.0, Eos % (Auto) 2.9, Baso % (Auto) 0.6, Absolute Neuts (auto) 3.2, Absolute Lymphs (auto) 1.01, Nucleated RBC % 0, Sodium 133 L, Potassium 3.6, Chloride 102, Carbon Dioxide 24.0, Anion Gap 7, BUN 15, Creatinine 1.12 H, Estim Creat Clear Calc 36.07, Est GFR (MDRD) Af Amer 61, Est GFR (MDRD) Non-Af 50 L, BUN/Creatinine Ratio 13.4, Glucose 117 H, Calcium 9.4, Total Bilirubin 0.40, Direct Bilirubin 0.18, AST 17, ALT 16, Alkaline Phosphatase 52, Total Protein 7.2, Albumin 3.6, Globulin 3.6 02/13/24 19:34: Urine Color Yellow, Urine Clarity Clear, Urine pH 7.0, Ur Specific [place] 1.010, Urine Protein Negative, Urine Glucose (UA) Normal, Urine Ketones 5 H, Urine Occult Blood 25 H, Urine Nitrite Negative, Urine Bilirubin Negative, Urine Urobilinogen 1 H, Ur Leukocyte Esterase 100 H, Urine RBC 0-5 SEEN, Urine WBC 5-10 SEEN, Ur Squamous Epith Cells 0-5 SEEN, Urine Bacteria 0 SEEN, Urine Mucus 0 SEEN Imaging Radiology Impression Brain CT 02/13/24 18:25 IMPRESSION: Low density in the left caudate head and basal ganglia may represent an acute ischemic infarct MRI can better evaluate Electronically Signed: Micha Jasso MD at 19:18 EDT , ADDENDUM: 02/13/24 193 IMPRESSION: Low density in the left caudate head and basal ganglia may represent an acute ischemic infarct MRI can better evaluate N.B. : The above Results were Read Back by Micha Jasso MD to Rashmi Stephen MD, and understanding confirmed on 02/13/2024 19:28:16 (ET). Electronically Signed: Micha Jasso MD at 19:18 EDT , Chest X-Ray 02/13/24 18:45 IMPRESSION: There are no acute findings. Electronically Signed: Micha Jasso MD at 19:22 EDT , Assessment & Plan Assessment/Plan (1) Acute confusion: (2) Cerebral infarct: PLAN: Plan The patient is a 78 y/o F w/ PMHx: Hx Diverticulitis s/p partial colectomy with transitional ostomy with reversal, Hx of benign throat tumor status postresection, Possible CKD unclear type, Anxiety and Depression, GERD, OA, ARVIND, Former tobacco use who presents to the [facility] [place] ED on 02/13/2024 with history of difficulty with memory impairment over the last approximate 5 days with inability to remember even simple things including her name, birthdate or Social Security number or even how to perform simple activities of daily living including closing the car door putting her seatbelt on with mild recent congestion but no upper respiratory illness symptoms beyond this prompting family to bring her in for evaluation. #1. Acute onset memory impairment with concerning CT of the brain with low-density in the left caudate head and basal ganglia possibly nutrition representative of an acute ischemic infarct but unclear chronicity: Will admit to PCU, will obtain MRI Brain, CTA Head and Neck, ECHO with bubble study, PT/OT/Speech/Nutrition evaluation per protocol. Will allow permissive HTN pending MRI brain although timeline of symptoms could certainly initiate therapy earlier, maintain on asa, initiate on statin w/ pending AM FLP, fall precautions. Mag, TSH, FLP, HgbA1c requested. Maintain on fall and aspiration precautions. Request neurology consultation. #2. Elevated BP without hypertensive diagnosis: Upon presentation BP elevated above goal, possibly stress response, will continue permissive hypertension as noted #1 with as needed agents per stroke protocol. #3. Possible Chronic Kidney Disease Stage III unclear subtype but no marked comparison labs thus certainly could be acute insufficiency versus JT: Admission BUN/Cr 15/1.12, baseline renal function remotely noted to be 0.6-1.0 but this has been many years in the last lab noted was in 2016, unable to truly ascertain if this is chronic, insufficiency or acute, will repeat BMP in AM to further elucidate. #4. History diverticulitis: Patient status post partial colectomy with ostomy with reversal, denies any acute issues but does have chronic IBS with constipation/diarrhea issues per discussion. #5. History benign throat tumor: Status post throat surgery with resection, denies any acute ongoing issues. #6. Anxiety and depression: Will continue patient home citalopram regimen, temporally hold temazepam given sedate of affect and need for accurate NIH stroke scale assessments. #7. GERD: Will maintain on PPI, as needed Mylanta for dyspepsia symptoms. #8. Former tobacco use: Encourage continued tobacco cessation. #9. ARVIND: CPAP nightly. #10. DVT prophylaxis: SCDs, will hold chemoprophylaxis pending MRI of the brain to be cautious in case this is a lesion rather than a stroke. #11. CODE status: Patient HCPOA and living will not in place but her who is present would be her medical decision-maker and she notes. Discussed CODE status at length including difference between FULL code, DNR-CCA and DNR-CC status. Following discussions about the differences in these status, requested Full Code status. Advanced Care Planning Face to Face Time: 16 minutes. Charges/Coding Visit Charges Inpatient E&M: 86383 Init Hosp L3 Procedures Hospitalists Procedures: 64380 Advncd Care Plan 30 Min
--- NOTE | 2024-02-13 20:18 | ED.RN ---
contact Sherry, granddaughter, with questions concerning home medications at [phone]
--- NOTE | 2024-02-13 21:15 | ECHOD_ITS ---
Reason For Study: CVA Procedure This was a 2D Doppler, Color Flow transthoracic echocardiogram. Exam performed portable in patient room. Left Ventricle Normal LV size. Left ventricular systolic function is normal. The left ventricular ejection fraction is 65 %. No regional wall motion abnormalities noted. Right Ventricle Normal RV size. Normal systolic function. Atria Normal left atrium. Normal right atrium. Bubble contrast study negative for right to left interatrial shunt. Mitral Valve Normal mitral valve. Tricuspid Valve Normal tricuspid valve. Mild (1+) tricuspid valve insufficiency. Pulmonary artery systolic pressure is 28 mmHg. Aortic Valve Trisinus/trileaflet aortic valve. Pulmonic Valve Normal pulmonic valve. Great Vessels Normal aortic root. The pulmonary artery is normal size. Normal inferior vena cava. Pericardium/Pleural No pericardial effusion. Medication Performed a rapid injection of agitated mix of 9 cc saline and 1cc air to assess for atrial septal defect. MMode/2D Measurements & Calculations LVIDd: 3.9 cm IVSd: 0.93 cm LAV(MOD-bp): 45.7 ml LVIDs: 2.7 cm LVPWd: 1.3 cm RVDd: 2.8 cm FS: 30.2 % LAV(MOD-bp) Indexed: 28.3 ml/m2 LAV(MOD-sp2): 39.0 ml LAV(MOD-sp4): 50.6 ml SV(MOD-sp4): 58.6 ml SV(sp4-el): 59.3 ml LVAd ap4: 27.9 cm2 LVLd ap4: 7.5 cm EDV(MOD-sp4): 85.3 ml EDV(sp4-el): 87.7 ml LVAs ap4: 14.2 cm2 LVLs ap4: 6.0 cm ESV(MOD-sp4): 26.8 ml ESV(sp4-el): 28.4 ml EF(MOD-sp4): 68.6 % EF(sp4-el): 67.6 % LA dimension(2D): 4.0 cm LA A4 area: 18.0 cm2 RA A4 area: 16.4 cm2 TAPSE: 2.4 cm Time Measurements MV dec time: 0.16 sec Doppler Measurements & Calculations MV E max jemal: 98.7 cm/sec Lat Peak E' Jemal: 9.3 cm/sec Med Peak E' Jemal: 7.3 cm/sec MV A max jemal: 76.6 cm/sec E/E' lat: 10.6 E/E' med: 13.5 MV E/A: 1.3 MV V2 max: 96.8 cm/sec MV dec slope: 637.1 cm/sec2 Ao V2 max: 109.5 cm/sec MV max P.7 mmHg Ao max P.8 mmHg MV V2 mean: 48.1 cm/sec Ao V2 mean: 73.8 cm/sec MV mean P.2 mmHg Ao mean P.4 mmHg MV V2 VTI: 28.2 cm Ao V2 VTI: 24.7 cm AV (velocity ratio): 0.86 LV V1 max: 80.8 cm/sec PA V2 max: 66.5 cm/sec TR max jemal: 247.8 cm/sec LV V1 max P.6 mmHg PA V2 mean: 46.9 cm/sec TR max P.6 mmHg LV V1 mean P.4 mmHg LV V1 mean: 56.5 cm/sec LV V1 VTI: 21.3 cm ECHO/Echo Complete Interpretation Summary Normal LV size. Left ventricular systolic function is normal. The left ventricular ejection fraction is 65 %. Mild (1+) tricuspid valve insufficiency. Pulmonary artery systolic pressure is 28 mmHg. Bubble contrast study negative for right to left interatrial shunt. Ordering Physician: Sisi Long Referring Physician: JUDITH SHEPARD Performed By: Megan Solis and Student
--- NOTE | 2024-02-13 21:15 | CT_ITS ---
INDICATION: CVA EXAMINATION: CTA Head and Neck W/ Contrast Injection (and W/O Contrast Images if performed) TECHNIQUE: Routine carotid CT angiogram protocol was performed with IV contrast. In addition, images were obtained of the [place]. Sagittal and coronal reconstructed images and 3D reconstructions were reviewed. Individualized dose optimization techniques were used for this CT. IV contrast dosage and agent: 75 mL of Isovue-370. COMPARISON: Noncontrast head CT from earlier same day and CT from 05/31/2009. FINDINGS: --CTA HEAD: No evidence of arterial flow limiting stenosis. No evidence of large vessel occlusion. No aneurysm. Bilateral anterior cerebral arteries supplied by the left internal carotid artery. Left basal ganglia infarcts, possibly acute. --CTA NECK: AORTIC ARCH AND BRANCHES: No significant stenosis of the visualized portions. RIGHT CCA: No significant stenosis. No dissection. RIGHT ICA: No significant stenosis. No dissection. LEFT CCA: No significant stenosis. No dissection. LEFT ICA: No significant stenosis. No dissection. RIGHT VERTEBRAL ARTERY: No significant stenosis. No dissection. LEFT VERTEBRAL ARTERY: No significant stenosis. No dissection. NECK SOFT TISSUES: Unremarkable. THYROID: 1.0 cm right lobe nodule with no follow-up recommended. THORACIC INLET: Visualized lung apices are unremarkable. CT/CTA Head AND Neck W/ Contrast IMPRESSION: 1. No evidence of intracranial arterial flow limiting stenosis, large vessel occlusion or aneurysm. 2. No evidence of flow-limiting stenosis or dissection of the bilateral carotid or vertebral arteries. Electronically Signed: Kishan Morrissey DO at 23:24 EDT ,
[2024-02-13] MEDS: 0.9% Normal Saline (1000mL) 1,000 ML 100 ML IV (22:10)
[2024-02-13] MEDS: Aspirin 325 MG Tablet PO (22:27)
[2024-02-13] MEDS: Pantoprazole Sodium 20 MG Tablet PO (22:28)
[2024-02-13] MEDS: Atorvastatin Calcium 40 MG Tablet PO (22:29)
[2024-02-14 00:44] VITALS: BMI 26.1
[2024-02-14 00:49] VITALS: BMI 26.1
[2024-02-14 02:00] VITALS: BP 144/68; PULSE 66; RESP 16; TEMP 36.2; O2SAT 98
[2024-02-14 04:28] VITALS: BMI 26.0
[2024-02-14 04:33] LABS: Absolute Lymphocyte Count 1.44 X10^3/uL (0.83-4.51); Absolute Neutrophil Count 1.6 X10^3/uL (2.0-7.7); Basophil# 0.05 X10^3/uL; Basophil% 1.2 % (0-1); Eosinophil# 0.48 X10^3/uL; Hematocrit 34.9 % (37-47); Hemoglobin 11.3 g/dL (12.0-15.0); Lymphocyte # 1.44 X10^3/ul (0.83-4.51); Lymphocyte % 35.9 % (19-41); Mean Corp Hgb Conc 32.4 g/dL (32-36); Mean Corpuscular Hgb 29.6 pg (27.0-32.0); Mean Corpuscular Volume 91.4 fL (81-99); Mean Platelet Vol. 10.4 fl (6.2-12.0); Monocyte# 0.45 X10^3/uL; Monocyte% 11.2 % (0-10); NRBC Flagged by Analyzer 0 % (0-5); Neutrophil # 1.58 X10^3/uL (2.7-7.7); Neutrophil % 39.5 % (47-70); Platelet Count 238 K/mm3 (150-450); RBC Distribution Width CV 13.2 % (11.6-14.6); RBC Distribution Width SD 44.7 fl (35.1-43.9); Red Blood Count 3.82 M/mm3 (4.2-5.4)
[2024-02-14 05:03] LABS: AST(SGOT) 17 U/L (15-37); Alanine Aminotransfer ALT/SGPT 18 U/L (13-56); Albumin, Serum 3.2 g/dL (3.2-5.0); Alkaline Phosphatase 44 U/L (45-117); Anion Gap 9 (5-15); BUN 12 mg/dL (7-18); BUN/Creat Ratio 16.3 RATIO (10-20); Calcium,Total 8.8 mg/dL (8.5-10.1); Chloride 103 mmol/L (98-107); Cholesterol 168 mg/dL (200); Creatinine, Serum 0.74 mg/dL (0.55-1.02); EST Glomerular Filtration Rate 81 mL/min (>60); Est Glom Filt Rate - Afr Amer 98 mL/min (>60); Estimated Creatinine Clearance 49.94 ml/min; Globulin 3.3 g/dL (2.2-4.2); Glucose 87 mg/dL (74-106); High Density Lipoprotein 87 mg/dL; Potassium 3.6 mmol/L (3.5-5.1); Protein, Total 6.5 g/dL (6.4-8.2); Sodium Level 134 mmol/L (136-145); Thyroid Stim Hormone (TSH) 3.29 uIU/mL (0.358-3.74); Triglycerides 29 mg/dL; Very Low Density Lipoprotein 6 mg/dL (5-40)
[2024-02-14 06:00] VITALS: BP 138/76; PULSE 72; RESP 15; TEMP 36.3; O2SAT 98
[2024-02-14 08:34] LABS: Hemoglobin A1c 5.1 % (3.8-5.6)
[2024-02-14 08:50] VITALS: BP 139/54; PULSE 63; RESP 16; TEMP 36.8; O2SAT 98
[2024-02-14] MEDS: Pantoprazole Sodium 20 MG Tablet PO ×2 (08:56→20:34)
[2024-02-14] MEDS: Citalopram 20 MG Tablet PO (08:56)
[2024-02-14] MEDS: Aspirin 81 MG TAB.CHEW PO (08:56)
[2024-02-14] MEDS: Sodium Chloride 1 GM Tablet PO ×4 (08:56→20:34)
--- NOTE | 2024-02-14 09:00 | MRI_ITS ---
HISTORY: CVA. TECHNIQUE: Multiplanar and multisequence MR images of the brain were obtained without contrast. 275 images. COMPARISON: CT prior day. FINDINGS: BRAIN PARENCHYMA: Mild-moderate zone of restricted diffusion in the left periventricular region extending to the basal area, corresponding to the CT findings. Mild chronic periventricular white matter changes. No acute intracranial hemorrhage identified. CSF SPACES: Mild generalized volume loss. No significant midline shift or other mass effect.No extra-axial fluid collection. VASCULAR SYSTEM: Major intracranial flow voids are maintained. PARANASAL SINUSES AND MASTOID AIR CELLS: No significant air fluid levels. ORBITS: Bilateral lens resections. MRI/Brain without Contrast IMPRESSION: Acute left basal ganglia infarct with periventricular extension, corresponding to the CT findings. Mild chronic involutional and white matter changes. Electronically Signed: Surekha Qureshi MD at 10:40 EDT ,
--- NOTE | 2024-02-14 10:00 | CASEMGMT ---
RN CM Face to Face with patient for initial transition planning/care coordination assessment. RN CM introduced self and role at [facility]. Patient lying in bed, alert and oriented, son at bedside. Patient willing to participate in assessment and is able to answer all questions appropriately. Care providers, pharmacy, and demographics verified. PCP: SANGITA Millard Specialists: none Preferred Pharmacy: [facility] Insurance: [employer] Prescription Benefit: yes Living Will/HPOA: none LNOK: , son Living Arrangements: Patient lives with in a single story home with 2 steps to enter. Patient states she was independent at home. Transportation: self, DME/HHC: Patient has BSC, can, and grab bars at home. No previous HHC or SNF. Will monitor progress with therapy. Patient wishes to discharge home. Will monitor for outpatient therapy vs HHC pending therapy. Patient and son state they have no further needs or concerns at this time. CM to follow for discharge planning needs that may arise. Disposition Plan: Patient to discharge home with family support and follow-up plans in place. Will monitor for outpatient therapy vs HHC at discharge. Ely CABALLERO, RN, CM
--- NOTE | 2024-02-14 11:36 | CASEMGMT ---
SW did attempt to complete a PHQ 9 with patient as she may have had a Stroke or TIA. Patient appeared to have difficulty understanding and answering questions. Patient stated, I don't know a few times. At this time SW feels PHQ 9 is appropriate due to her cognitive deficits from possible Stroke/TIA. Fannie Nixon HOT STONE SETTER GRANT
--- NOTE | 2024-02-14 12:39 | CON.PCM.NE_ITS ---
Assessment and Plan: Stroke Assessment/Plan SAMREEN VELÁZQUEZ is a 78 F with a history of CKD and ARVIND who presents for evaluation of confusion and word difficulties. Pt symptoms are mild and while there is some improvement, pt is not returned to baseline. MRI with L johnson radiata stroke likely 2/2 lentiform stroke on the L. Etiology cryptogenic and workup pending. Neurological examination shows slowed reactivity and mild R arm and leg weakness. - Anti-platelet medication: Aspirin 81 mg daily - atorvastatin 40mg - LDL 75, A1C 5.1 - pending TTE - Occupational/ Physical therapy consults - DVT prophylaxis with SCDs and heparin SQ - Vascular risk factor modification. The following are the recommended guidelines: LDL Goal < 70 Smoking Cessation Diabetes Management supervisor intermediates blood pressure control should achieve <130/80 mmHg. 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 Weight Management: Goal for BMI is 18.5 -24.9 kg/m2 Alcohol: No more than 2 drinks/day for men or 1 drink/day for non- women - Promote lifestyle modification: weight control, physical activity, moderation of alcohol intake, moderate sodium intake. Final recs after TTE. If TTE normal, will need cardiac monitoring. HPI Consult Data Date of Consult: 02/14/24 HPI Narrative HPI Narrative: SAMREEN VELÁZQUEZ, is a 78 F who presents with memory difficulty Patient presents secondary to memory problems for the past 5 days or so. She reportedly has not been able to remember things as simple as her name, birthdate, Social Security number. Family states that she could not remember how to put her seatbelt on or how to close the car door. She has not had any recent injury or fall. She reportedly was complaining of some mild congestion but no fever or chills. Patient denies any pain at this time and does not feel ill. 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 Nothing like this happened in the past, never had stroke before. Speech also involved as well, and has had paraphasias. does not take any blood thinners at home. Non smoker now, no history heart palpitations. [facility] Medical History (Updated 02/13/24 @ 20:[address] Sisi Long MD) Benign tumor of throat History of diverticulitis Anxiety and depression Former tobacco use Abnormal mammogram of left breast Acid reflux Constipation Sleep apnea Arthritis Back problem Home Medications ?Medication ?Instructions ?Recorded ?Last Taken ?Type temazepam 30 mg capsule 30 mg PO QHS sleep 04/23/17 04/27/17 History citalopram 20 mg tablet (Celexa) 40 mg PO DAILY depression 02/22/20 Unknown History ergocalciferol (vitamin D2) 1,250 1,250 mcg PO 2XW supplement 02/22/20 Unknown History mcg (50,000 unit) capsule cholecalciferol (vitamin D3) 75 75 mcg PO DAILY supplement 02/13/24 Unknown History mcg (3,000 unit) tablet sodium chloride 1 gram tablet 1,000 mg PO .COMPLEX low sodium 02/13/24 Unknown History Allergy/AdvReac Type Severity Reaction Status Date / Time Sulfa (Sulfonamide AdvReac Nausea Verified 02/13/24 18:00 Antibiotics) Family History Mother Arthritis Brother Cancer Lung cancer Father Lung cancer Cancer Myocardial infarction Heart disease Surgical History Hx of colonoscopy Hx of left breast biopsy Hx of hysterectomy Hx of total knee replacement Hx of foot surgery History of colostomy reversal History of creation of ostomy History of partial colectomy History of throat surgery Hx of eye surgery Social History household members: spouse Smoking Status: Former smoker second hand exposure: No alcohol intake: current alcohol intake frequency: a few times a month substance use type: does not use caffeine: Yes what type of physical activity do you participate in: none frequency: does not exercise Vital Signs Vital Signs Vital Signs: 02/13/24 18:01 02/13/24 20:00 02/13/24 20:15 Temperature 97.7 F L 98 F Temperature Source Temporal Pulse Rate 83 61 62 Pulse Strength Respiratory Rate 18 19 H 18 Respiratory Effort Respiratory Depth Respiratory Pattern Blood Pressure 165/72 H 149/75 H 153/75 H Blood Pressure Mean 103 99 101 Blood Pressure Source Blood Pressure Position Blood Pressure Location Pulse Ox 100 99 99 Oxygen Delivery Method Room Air Room Air 02/13/24 21:05 02/13/24 22:00 02/13/24 22:00 Temperature 97.6 F L Temperature Source Temporal Pulse Rate 58 L Pulse Strength Normal (2+) Respiratory Rate 16 Respiratory Effort Normal Non-Labored Respiratory Depth Respiratory Pattern Blood Pressure 141/85 H Blood Pressure Mean 103 Blood Pressure Source Monitor Blood Pressure Position Semi-Fowlers Blood Pressure Location Right Arm Pulse Ox 100 100 Oxygen Delivery Method Room Air Room Air 02/13/24 22:05 02/13/24 23:00 02/14/24 02:00 Temperature 98.0 F 97.1 F L Temperature Source Oral Temporal Pulse Rate 64 66 Pulse Strength Respiratory Rate 16 16 Respiratory Effort Respiratory Depth Respiratory Pattern Blood Pressure 156/63 H 144/68 H Blood Pressure Mean 94 93 Blood Pressure Source Monitor Monitor Blood Pressure Position Semi-Fowlers Semi-Fowlers Blood Pressure Location Right Arm Right Arm Pulse Ox 99 99 98 Oxygen Delivery Method Room Air Room Air Room Air 02/14/24 04:13 02/14/24 06:00 02/14/24 07:45 Temperature 97.4 F L Temperature Source Temporal Pulse Rate 72 Pulse Strength Respiratory Rate 15 Respiratory Effort Normal Normal Non-Labored Respiratory Depth Normal Normal Respiratory Pattern Normal Blood Pressure 138/76 H Blood Pressure Mean 96 Blood Pressure Source Monitor Blood Pressure Position Semi-Fowlers Blood Pressure Location Right Arm Pulse Ox 98 Oxygen Delivery Method Room Air Room Air Room Air 02/14/24 08:41 02/14/24 08:50 Temperature 98.3 F Temperature Source Temporal Pulse Rate 63 Pulse Strength Normal (2+) Respiratory Rate 16 Respiratory Effort Respiratory Depth Respiratory Pattern Blood Pressure 139/54 H Blood Pressure Mean 82 Blood Pressure Source Monitor Blood Pressure Position Semi-Fowlers Blood Pressure Location Right Arm Pulse Ox 98 Oxygen Delivery Method Room Air Weight Weight: 62.6 kg Body Mass Index (BMI) 26.0 EEG Results Procedure Details EEG Procedure Details: SAMREEN VELÁZQUEZ is a 78 year old F with a past medical history of , who presents for evaluation of Electroencephalogram on DATE at TIME NIHSS NIHSS Nursing Documentation NIHSS Nursing Documentation: NIHSS: Ischemic Stroke/TIA Start: 02/13/24 21:15 Text: For PCU Patients: NIH and Neuro Check every 4 Status: Active hours, PRN and with change in RN caregiver. Freq: [id number] Protocol: Activity Type Activity Date Activity User E-sign Co-sign Detail Recorded Client Recorded Date Recorded By Document 02/14/24 08:50 desktop 02/14/24 08:54 02/14/24 08:50 NIH Stroke Scale [NIHSS] A score of 0 is normal or asymptomatic . Total possible score is 42. Inpatient: RN or Physician to activate a stroke alert for onset of new stroke symptoms or with NIHSS increase >/= 3 points. Following change in neurological status, NIHSS will be performed per physician order or more frequently PRN. -1a. Level of Consciousness Alert; keenly responsive -1b. LOC Questions Answers BOTH questions correctly. -1c. LOC Commands Performs both tasks correctly . -2. Best Gaze Normal -3. Visual No visual loss -4. Facial Palsy Normal symmetrical movements -5a. Left Arm No drift; arm holds 90 (or 45 ) degrees for full 10 seconds -5b. Right Arm No drift; arm holds 90 (or 45 ) degrees for full 10 seconds -6a. Left Leg No drift; leg holds 30-degree position for full 5 seconds -6b. Right Leg No drift; leg holds 30-degree position for full 5 seconds -7. Limb Ataxia Present in 1 limb -8. Sensory Normal; no sensory loss -9. Best Language Mild-to- moderate aphasia; -10. Dysarthria Normal -11. Extinction and Inattention No abnormality -Total 2 Query Text:A score of 0 is normal or asymptomatic. Total possible score is 42 . ED: Notify Physician for NIHSS increase by > / = 3 points. Inpatient: RN or Physician to activate a stroke alert for NIHSS increase of > / = 3 points. Coma Scale [Assess] -Eye Opening Spontaneous -Motor Obeys Commands -Verbal Oriented [Total] -Coma Scale Total 15 NIHSS 1a. Level of Consciousness: Alert; keenly responsive 1b. LOC Questions: Answers BOTH questions correctly. 1c. LOC Commands: Performs both tasks correctly. 2. Best Gaze: Normal 3. Visual: No visual loss 4. Facial Palsy: Normal symmetrical movements 5a. Left Arm: No drift; arm holds 90 (or 45) degrees for full 10 seconds 5b. Right Arm: No drift; arm holds 90 (or 45) degrees for full 10 seconds 6a. Left Leg: No drift; leg holds 30-degree position for full 5 seconds 6b. Right Leg: No drift; leg holds 30-degree position for full 5 seconds 7. Limb Ataxia: Absent 8. Sensory: Normal; no sensory loss 9. Best Language: No aphasia; normal 10. Dysarthria: [id number] dysarthria; 11. Extinction and Inattention: No abnormality Total: 1 Physical Exam Narrative -? General: Laying comfortably in bed; in no acute distress. -? HENT: Normal oropharynx and mucosa. Normal external appearance of ears and nose. Exophthalmos. -? Neck: Supple, no pain or tenderness -? CV:? No peripheral edema. -? Pulmonary:? Normal respiratory effort. -? Ext: No cyanosis, edema, or deformity -? Skin: No rash. Normal palpation of skin.? -? Musculoskeletal: full range of motion; no joint tenderness. Normal digits and nails by inspection. No clubbing. -? NEURO: -? Mental Status: The patient was alert and oriented to time, place, and person. Normal recent/remote memory, concentration, and general fund of knowledge. -? Language: speech is slightly slurred.? Naming, repetition, fluency, and comprehension intact. -? Cranial Nerves: PERRL 3 mm/brisk. EOMI, visual thomas full, no facial asymmetry, facial sensation intact, hearing intact, -? Motor: pronation RUE and RLE slight drift. Upper and lower extremities equal bilaterally. -?? -? Tone: is normal and bulk is normal -? Sensation- Intact to light touch bilaterally -? Coordination: No dysmetria on [id number], finger follow finger or [id number]. -? Gait- deferred Lab / Micro Data 02/14/24 03:50 02/14/24 03:50 Labs: Laboratory Results - last 24 hr 02/13/24 18:17: POC Glucose 136 H 02/13/24 18:30: WBC 4.8, RBC 4.13 L, Hgb 12.3, Hct 37.9, MCV 91.8, MCH 29.8, MCHC 32.5, RDW Std Deviation 44.8 H, RDW Coeff of [place] 13.2, Plt Count 237, MPV 9.8, Immature Gran % (Auto) 0.400, Neut % (Auto) 66.8, Lymph % (Auto) 21.3, [place] % (Auto) 8.0, Eos % (Auto) 2.9, Baso % (Auto) 0.6, Absolute Neuts (auto) 3.2, Absolute Lymphs (auto) 1.01, Nucleated RBC % 0, Sodium 133 L, Potassium 3.6, Chloride 102, Carbon Dioxide 24.0, Anion Gap 7, BUN 15, Creatinine 1.12 H, Estim Creat Clear Calc 36.07, Est GFR (MDRD) Af Amer 61, Est GFR (MDRD) Non-Af 50 L, BUN/Creatinine Ratio 13.4, Glucose 117 H, Calcium 9.4, Magnesium 2.0, Total Bilirubin 0.40, Direct Bilirubin 0.18, AST 17, ALT 16, Alkaline Phosphatase 52, Total Protein 7.2, Albumin 3.6, Globulin 3.6 02/13/24 19:34: Urine Color Yellow, Urine Clarity Clear, Urine pH 7.0, Ur Specific Lee 1.010, Urine Protein Negative, Urine Glucose (UA) Normal, Urine Ketones 5 H, Urine Occult Blood 25 H, Urine Nitrite Negative, Urine Bilirubin Negative, Urine Urobilinogen 1 H, Ur Leukocyte Esterase 100 H, Urine RBC 0-5 SEEN, Urine WBC 5-10 SEEN, Ur Squamous Epith Cells 0-5 SEEN, Urine Bacteria 0 SEEN, Urine Mucus 0 SEEN 02/14/24 03:50: WBC 4.0 L, RBC 3.82 L, Hgb 11.3 L, Hct 34.9 L, MCV 91.4, MCH 29.6, MCHC 32.4, RDW Std Deviation 44.7 H, RDW Coeff of [place] 13.2, Plt Count 238, MPV 10.4, Immature Gran % (Auto) 0.200, Neut % (Auto) 39.5 L, Lymph % (Auto) 35.9, [place] % (Auto) 11.2 H, Eos % (Auto) 12.0 H, Baso % (Auto) 1.2 H, Absolute Neuts (auto) 1.6 L, Absolute Lymphs (auto) 1.44, Nucleated RBC % 0, Sodium 134 L , Potassium 3.6, Chloride 103, Carbon Dioxide 22.0, Anion Gap 9, BUN 12, Creatinine 0.74, Estim Creat Clear Calc 49.94, Est GFR (MDRD) Af Amer 98, Est GFR (MDRD) Non-Af 81, BUN/Creatinine Ratio 16.3, Glucose 87, Hemoglobin A1c 5.1, Calcium 8.8, Total Bilirubin 0.50, AST 17, ALT 18, Alkaline Phosphatase 44 L, Total Protein 6.5, Albumin 3.2, Globulin 3.3, Albumin/Globulin Ratio 1.0, Triglycerides 29, Cholesterol 168, LDL Cholesterol 75, VLDL Cholesterol 6, HDL Cholesterol 87, TSH 3.29 Imaging Radiology Impression Brain CT 02/13/24 18:25 IMPRESSION: Low density in the left caudate head and basal ganglia may represent an acute ischemic infarct MRI can better evaluate Electronically Signed: Micha Jasso MD at 19:18 EDT , ADDENDUM: 02/13/24 1934 IMPRESSION: Low density in the left caudate head and basal ganglia may represent an acute ischemic infarct MRI can better evaluate N.B. : The above Results were Read Back by Micha Jasso MD to Rashmi Stephen MD, and understanding confirmed on 02/13/2024 19:28:16 (ET). Electronically Signed: Micha Jasso MD at 19:18 EDT , Chest X-Ray 02/13/24 18:45 IMPRESSION: There are no acute findings. Electronically Signed: Micha Jasso MD at 19:22 EDT , Head/Neck CTA 02/13/24 21:15 IMPRESSION: 1. No evidence of intracranial arterial flow limiting stenosis, large vessel occlusion or aneurysm. 2. No evidence of flow-limiting stenosis or dissection of the bilateral carotid or vertebral arteries. Electronically Signed: Kishan Morrissey DO at 23:24 EDT , Brain MRI 02/14/24 09:00 IMPRESSION: Acute left basal ganglia infarct with periventricular extension, corresponding to the CT findings. Mild chronic involutional and white matter changes. Electronically Signed: Surekha Qureshi MD at 10:40 EDT , Active Medications Active Medications Active Medications: Current Medications Generic Name Dose Route Start Last Admin Trade Name Freq PRN Reason Stop Dose Admin Acetaminophen 650 mg 02/13/24 21:15 Acetaminophen 325 Mg Tablet PO Q4H PRN PRN Fever, pain 1-1010 Al Hydroxide/Mg Hydroxide 30 ml 02/13/24 21:15 Mag Hydrox/Al Hydrox/Simeth 30 Ml Udc PO Q6H PRN PRN Gastric Burning Albuterol Sulfate 2.5 mg 02/13/24 21:15 Albuterol 2.5 Mg/3 Ml Vial.Neb. INHALATION Q2H PRN PRN Dyspnea, wheezing Aspirin 81 mg 02/14/24 08:00 02/14/24 08:56 Aspirin 81 Mg Tab.Chew PO 81 mg BREAKFAST JESSICA Administration Atorvastatin Calcium 40 mg 02/13/24 22:00 02/13/24 22:29 Atorvastatin Calcium 40 Mg Tablet PO 40 mg QHS JESSICA Administration Citalopram Hydrobromide 20 mg 02/14/24 10:00 02/14/24 08:56 Citalopram 20 Mg Tablet PO 20 mg DAILY JESSICA Administration Guaifenesin 20 ml 02/13/24 21:15 Guaifenesin 10 Ml Udc (200mg/10ml) PO Q4H PRN PRN COUGH Hydralazine HCl 10 mg 02/13/24 21:15 Hydralazine 20 Mg/Ml Vial IV Q4H PRN PRN SBP > 160 Protocol Sodium Chloride 250 mls @ 15 mls/hr 02/13/24 21:28 IV .[id number] PRN Additional IVPB Infusion Sodium Chloride 250 mls @ 15 mls/hr 02/13/24 21:28 IV .[id number] PRN Saline Flush Loperamide HCl 2 mg 02/13/24 21:15 Loperamide 2 Mg Capsule PO Q2H PRN PRN DIARRHEA Melatonin 3 mg 02/13/24 21:15 Melatonin 3 Mg Tablet PO QHS PRN PRN INSOMNIA Ondansetron HCl 4 mg 02/13/24 21:15 Ondansetron 4 Mg/2 Ml Vial IV Q8H PRN PRN NAUSEA/VOMITING Pantoprazole Sodium 20 mg 02/13/24 22:00 02/14/24 08:56 Pantoprazole Sodium 20 Mg Tablet PO 20 mg BID JESSICA Administration Prochlorperazine Edisylate 5 mg 02/13/24 21:15 Prochlorperazine 10 Mg/2 Ml Vial IV Q4H PRN PRN Breakthrough Nausea/Vomiting Senna/Docusate Sodium 2 tablet 02/13/24 21:15 Senna/Docusate Sodium 1 Tablet PO BID PRN PRN Constipation Sodium Chloride 10 - 40 ml 02/13/24 21:28 0.9% Saline Lock 10 Ml Syringe IV UD PRN SALINE FLUSH Sodium Chloride 1 gm 02/14/24 10:00 02/14/24 08:56 Sodium Chloride 1 Gm Tablet PO 1 gm 5X/DAY JESSICA Administration
[2024-02-14 12:50] VITALS: BP 138/65; PULSE 75; RESP 16; TEMP 37.1; O2SAT 97
--- NOTE | 2024-02-14 13:26 | PN.HOSP_ITS ---
Subjective Subjective Doing well, does not seem to have a significant speech issue though family states that she still has some inappropriate responses to questions Objective Data Objective Data Vital Signs: Vital Signs Temp Pulse Resp BP Pulse Ox O2 Del Method 98.7 F 75 16 138/65 H 97 Room Air 02/14/24 12:50 02/14/24 12:50 02/14/24 12:50 02/14/24 12:50 02/14/24 12:50 02/14/24 12:50 Oxygen Delivery Method Room Air Weight: 138 lb 0.15 oz Body Mass Index (BMI) 26.0 Intake & Output: Intake and Output for Last 24 Hours 02/13/24 02/14/24 02/15/24 03:59 03:59 03:59 Intake Total 0 / 0 1000 / 1000 Output Total 0 / 0 Balance 0 / 0 1000 / 1000 Lab / Micro Data 02/14/24 03:50 02/14/24 03:50 Labs: Laboratory Results - last 24 hr 02/13/24 18:17: POC Glucose 136 H 02/13/24 18:30: WBC 4.8, RBC 4.13 L, Hgb 12.3, Hct 37.9, MCV 91.8, MCH 29.8, MCHC 32.5, RDW Std Deviation 44.8 H, RDW Coeff of Garfield 13.2, Plt Count 237, MPV 9.8, Immature Gran % (Auto) 0.400, Neut % (Auto) 66.8, Lymph % (Auto) 21.3, [place] % (Auto) 8.0, Eos % (Auto) 2.9, Baso % (Auto) 0.6, Absolute Neuts (auto) 3.2, Absolute Lymphs (auto) 1.01, Nucleated RBC % 0, Sodium 133 L, Potassium 3.6, Chloride 102, Carbon Dioxide 24.0, Anion Gap 7, BUN 15, Creatinine 1.12 H, Estim Creat Clear Calc 36.07, Est GFR (MDRD) Af Amer 61, Est GFR (MDRD) Non-Af 50 L, BUN/Creatinine Ratio 13.4, Glucose 117 H, Calcium 9.4, Magnesium 2.0, Total Bilirubin 0.40, Direct Bilirubin 0.18, AST 17, ALT 16, Alkaline Phosphatase 52, Total Protein 7.2, Albumin 3.6, Globulin 3.6 02/13/24 19:34: Urine Color Yellow, Urine Clarity Clear, Urine pH 7.0, Ur Specific Keystone 1.010, Urine Protein Negative, Urine Glucose (UA) Normal, Urine Ketones 5 H, Urine Occult Blood 25 H, Urine Nitrite Negative, Urine Bilirubin Negative, Urine Urobilinogen 1 H, Ur Leukocyte Esterase 100 H, Urine RBC 0-5 SEEN, Urine WBC 5-10 SEEN, Ur Squamous Epith Cells 0-5 SEEN, Urine Bacteria 0 SEEN, Urine Mucus 0 SEEN 02/14/24 03:50: WBC 4.0 L, RBC 3.82 L, Hgb 11.3 L, Hct 34.9 L, MCV 91.4, MCH 29.6, MCHC 32.4, RDW Std Deviation 44.7 H, RDW Coeff of Garfield 13.2, Plt Count 238, MPV 10.4, Immature Gran % (Auto) 0.200, Neut % (Auto) 39.5 L, Lymph % (Auto) 35.9, [place] % (Auto) 11.2 H, Eos % (Auto) 12.0 H, Baso % (Auto) 1.2 H, Absolute Neuts (auto) 1.6 L, Absolute Lymphs (auto) 1.44, Nucleated RBC % 0, Sodium 134 L , Potassium 3.6, Chloride 103, Carbon Dioxide 22.0, Anion Gap 9, BUN 12, Creatinine 0.74, Estim Creat Clear Calc 49.94, Est GFR (MDRD) Af Amer 98, Est GFR (MDRD) Non-Af 81, BUN/Creatinine Ratio 16.3, Glucose 87, Hemoglobin A1c 5.1, Calcium 8.8, Total Bilirubin 0.50, AST 17, ALT 18, Alkaline Phosphatase 44 L, Total Protein 6.5, Albumin 3.2, Globulin 3.3, Albumin/Globulin Ratio 1.0, Triglycerides 29, Cholesterol 168, LDL Cholesterol 75, VLDL Cholesterol 6, HDL Cholesterol 87, TSH 3.29 Radiography Diagnostic Testing: Radiology Impression Brain CT 02/13/24 18:25 IMPRESSION: Low density in the left caudate head and basal ganglia may represent an acute ischemic infarct MRI can better evaluate Electronically Signed: Micha Jasso MD at 19:18 EDT Reading Location ID and State: [facility] / [place] , Service support , ADDENDUM: 02/13/24 1934 IMPRESSION: Low density in the left caudate head and basal ganglia may represent an acute ischemic infarct MRI can better evaluate N.B. : The above Results were Read Back by Micha Jasso MD to Rashmi Stephen MD, and understanding confirmed on 02/13/2024 19:28:16 (ET). Electronically Signed: Micha Jasso MD at 19:18 EDT , Chest X-Ray 02/13/24 18:45 IMPRESSION: There are no acute findings. Electronically Signed: Micha Jasso MD at 19:22 EDT , Head/Neck CTA 02/13/24 21:15 IMPRESSION: 1. No evidence of intracranial arterial flow limiting stenosis, large vessel occlusion or aneurysm. 2. No evidence of flow-limiting stenosis or dissection of the bilateral carotid or vertebral arteries. Electronically Signed: Kishan Morrissey DO at 23:24 EDT , Brain MRI 02/14/24 09:00 IMPRESSION: Acute left basal ganglia infarct with periventricular extension, corresponding to the CT findings. Mild chronic involutional and white matter changes. Electronically Signed: Surekha Qureshi MD at 10:40 EDT , Physical Exam Narrative General: Alert, Oriented x3, Cooperative, No apparent distress HEENT: Atraumatic, PERRLA, EOMI, Normocephalic Oral: Moist Mucosa Neck: Supple, No JVD Lungs: Clear to auscultation, Normal air movement, No rhonchi, No wheeze, No rales Cardiovascular: Regular rate, Regular Rhythm, Normal S1, Normal S2, No murmurs Abdomen: Soft, Non Tender, Non-Distended, No Hepato-splenomegaly Extremities: No edema, Capillary Refill Less than 3 Seconds Skin: No rashes, No breakdown Musculoskeletal: No Tenderness to Palpation of Joints or Extremities Neurological: No focal neurological deficits, Motor Exam 5/5 strength throughout, Sensory exam intact to light touch and pain, NIH of 0 Psych/Mental Status: Normal Affect, Appropriate Assessment & Plan Assessment/Plan (1) Acute confusion: (2) Cerebral infarct: PLAN: Plan 1. 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 PT/OT/speech are pending ? Appreciate neurology's assistance ? Continue with aspirin and Lipitor ? May need Holter monitor on discharge ? Echo is pending 2. Anxiety/depression ? Stable ? Continue with her home medications 3. GERD ? Stable ? Continue with PPI DVT: SCDs Charges/Coding Visit Charges Inpatient E&M: 81983 Subs Hosp L2
--- NOTE | 2024-02-14 14:32 | CHAPLAIN ---
Type of Pastoral Visit _x__ Initial Visit ___ Follow-up Visit ___ On-call Visit ___ General Patient Visit ___ Spiritual Assessment ___ Family Conference ___ Bereavement ___ Rapid Response ___ Code Blue ___ Other (describe below) Pastoral Care Referral From _x__ Patient ___ Family ___ Nurse ___ Physician ___ Plaster Applicator ___ Director Post ___ Other (describe below) Sacrament/Intervention ___ Active listening ___ Anointing ___ Synagogue ___ Bereavement ___ Communion ___ Sarah exploration ___ ___ Life review ___ Prayer ___ Reconciliation ___ Sacrament of Sick _x__ Supportive presence ___ Wedding ___ Other (describe below) Pastoral Comments patient is awake and alert; spouse and two sons are in the room; family members are quiet; pt states that she is fine, has no needs; offer of support given to all and everyone denies a need or concern
--- NOTE | 2024-02-14 15:21 | CASEMGMT ---
Pt was recently evaluated by PT/OT. This RN CM to pt room at this time and pt denies the need for PT/OT after DC. However, the pt states that she would like ST after DC. Pt states that she would prefer HH vs OP ST. The pt states that she will not be driving for some time and may qualify for the HHC. Pt denies wanting to see a list of local C agencies and states that she would either want [facility] or [facility] as long as they are in network with her insurance. TC to [facility] and referral made for ST. [facility] denies the pt as the pt home address is outside of their service radius. [employer] [place] Drawing In Machine Tender updated and to make referral to [facility] for ST. Will continue to follow.
--- NOTE | 2024-02-14 15:35 | CASEMGMT ---
Discharge Planning referral for ST sent to [facility] via [facility]. Nancie Torres DC Planning Asst.
[2024-02-14 16:20] VITALS: BMI 26.0
--- NOTE | 2024-02-14 16:21 | CASEMGMT ---
Discharge Planning A list of HH providers including quality and resource use data and consistent with the patient's preferred geographic region, medical needs, and insurance network were printed and provided to the patient from the [facility] Guide. Nancie Torres, Discharge Planning Asst.
[2024-02-14 16:50] VITALS: BP 145/72; PULSE 58; RESP 16; TEMP 36.7; O2SAT 98
[2024-02-14 20:29] VITALS: BP 137/81; PULSE 67; RESP 16; TEMP 36.4; O2SAT 98
[2024-02-14] MEDS: Atorvastatin Calcium 40 MG Tablet PO (20:34)
[2024-02-15 00:20] VITALS: BMI 26.0
[2024-02-15 00:30] VITALS: BP 149/66; PULSE 68; RESP 16; TEMP 36.1; O2SAT 97
[2024-02-15 03:17] VITALS: BMI 28.0
[2024-02-15 04:45] VITALS: BP 134/64; PULSE 62; RESP 16; TEMP 36.3; O2SAT 96
[2024-02-15] MEDS: Sodium Chloride 1 GM Tablet PO ×2 (05:09→07:45)
[2024-02-15 06:56] VITALS: O2SAT 98
--- NOTE | 2024-02-15 07:08 | PCM.DC ---
Discharge Instructions Diet Discharge Diet: Low fat / Low cholesterol Activity Discharge Activity: Return to Normal Activity Dressing / Incision Call your doctor if you observe: Fever of 101 or Higher, Shortness of breath, Dizziness, Fainting spells, Swelling in the ankles, Chest pain and Increased palpitations (irregular heartbeat) Follow Up Care Test Results: Test results from this visit will be discussed in further detail at your follow-up appointment, if applicable. Discharge Plan Admission Admit Date/Time: 02/13/24 20:01 Attending Provider: Leodan Pozo Primary Care Provider: Yeimi Millard Consulting Providers: Momo Lock; Nestor Anglin; Suze Patel; Angeles Nevarez; Taryn Angel; Armando Leon; Mariiln Celis; Vicente Lopez; Romeo Desir; Cindy Graves; Juanpablo Anderson; Parvin Timmons; Consuelo Jewell; Eunice Raymundo; Cuauhtemoc Mckeon; Juhi Starkey; Silvio العراقي; Carmella Viveros; Joana Potter; Sisi Long Instructions Additional Instructions / Restrictions: Obtain referral for outpatient neurology from your PCP Discharge Orders/Prescriptions Prescriptions: New aspirin 81 mg Tablet,Chewable 81 mg PO BREAKFAST 30 Days Qty: 30 0RF atorvastatin 40 mg Tablet 40 mg PO QHS 30 Days Qty: 30 0RF Continued ergocalciferol (vitamin D2) 1,250 mcg (50,000 unit) capsule 1,250 mcg PO 2XW Patient Comments: TAKE 1 CAPSULE BY MOUTH TWICE A WEEK FOR 90 DAYS citalopram [Celexa] 20 mg tablet 40 mg PO DAILY Patient Comments: Only takes 3-4 times a week temazepam 30 MG capsule 30 mg PO QHS Patient Comments: sleep sodium chloride 1 gram tablet 1,000 mg PO .COMPLEX Rx Instructions: 1,000 mg orally 5 times daily; cholecalciferol (vitamin D3) 75 mcg (3,000 unit) tablet 75 mcg PO DAILY Other Ambulatory Orders: 30 Day Event Recorder Preventi (Routine) Timeframe: 1 Day Facility: [facility] - Location: Cardiovascular Services Ordered By: Dr. Leodan Pozo Referrals / Follow Up: Yeimi Millard, DENTAL LABORATORY WORKER-C [Primary Care Provider] - Within 1 Week Ericka Akhtar NP, DENTAL LABORATORY WORKER-C [Non-Staff] - Disposition Disposition (needs filled in before D/C Order can be placed): Home, Self Care
[2024-02-15 07:30] VITALS: BP 147/73; PULSE 65; RESP 16; TEMP 36.8; O2SAT 97
[2024-02-15] MEDS: Aspirin 81 MG TAB.CHEW PO (07:44)
[2024-02-15] MEDS: Citalopram 20 MG Tablet PO (07:44)
[2024-02-15] MEDS: Pantoprazole Sodium 20 MG Tablet PO (07:44)
--- NOTE | 2024-02-15 09:10 | CASEMGMT ---
Addendum entered by Ofe Donahue 02/15/24 10:32: All agencies have declined. Dr. Pozo signs Rx for OP Tx. RN CM to pt room and pt provided with script and the pt states that she will set up the appt herself. Pt states that she feels safe going home with this plan today. Pt denies further needs. Black Dot placed on white board. Original Note: Order for pt DC placed. This RN CM to pt room at this time and the pt states that she was able to review the list of [facility] agencies for ST. Pt states that she does not have a preference on which [facility] company she uses. SER[place] assistant athletic trainer notified and to make referrals. If all [facility] agencies decline, pt states that she would be agreeable to try OP ST. Will continue to follow.
--- NOTE | 2024-02-15 09:30 | CASEMGMT ---
Discharge Planning HH referral sent to [facility]. Nancie Torres DC Planning Asst.
[2024-02-15 11:06] VITALS: BMI 28.0
--- NOTE | 2024-02-15 13:43 | PHA.DC.MR.R ---
Pharmacy PA Med Reconciliation Pharmacy Service has performed discharge medication reconciliation for this patient. Medication education papers prepared, patient discharged when counseling was attempted. The patient's discharge medication list was reviewed for discrepancies and discrepancies were resolved. Medications at Discharge Home Medications temazepam 30 mg capsule 30 mg PO QHS sleep 04/23/17 citalopram 20 mg tablet (Celexa) 40 mg PO DAILY depression 02/22/20 ergocalciferol (vitamin D2) 1,250 mcg (50,000 unit) capsule 1,250 mcg PO 2XW supplement 02/22/20 cholecalciferol (vitamin D3) 75 mcg (3,000 unit) tablet 75 mcg PO DAILY supplement 02/13/24 sodium chloride 1 gram tablet 1,000 mg PO .COMPLEX low sodium 02/13/24 aspirin 81 mg chewable tablet 81 mg PO BREAKFAST 30 days #30 tabs 02/15/24 atorvastatin 40 mg tablet 40 mg PO QHS 30 days #30 tabs 02/15/24
--- NOTE | 2024-02-15 14:54 | DS.PCM_ITS ---
Providers Date of Admission: 02/13/24 Primary Care Physician: CHRISTIANNE Lopez Consultations 02/13/24 21:15 Consult: Tele-Neurology Routine Consulting Provider: [facility] Reason for Consult: Acute Ischemic Stroke/TIA EMERGENT Consult: No MD Notified: Yes Date Notified: 02/13/24 Time Notified: 20:03 Method of Notification: Answering Service Nursing Unit Staff Notify [facility] of Tele-Neurology Consult: Yes Reason For Visit: ACUTE CONFUSION , CVA Diagnosis Discharge Diagnosis (1) Acute confusion: Status: Acute Code(s): R41.0 - Disorientation, unspecified (2) Cerebral infarct: Status: Acute Code(s): I63.9 - Cerebral infarction, unspecified Medications at Discharge Home Medications temazepam 30 mg capsule 30 mg PO QHS sleep 04/23/17 citalopram 20 mg tablet (Celexa) 40 mg PO DAILY depression 02/22/20 ergocalciferol (vitamin D2) 1,250 mcg (50,000 unit) capsule 1,250 mcg PO 2XW supplement 02/22/20 cholecalciferol (vitamin D3) 75 mcg (3,000 unit) tablet 75 mcg PO DAILY supplement 02/13/24 sodium chloride 1 gram tablet 1,000 mg PO .COMPLEX low sodium 02/13/24 aspirin 81 mg chewable tablet 81 mg PO BREAKFAST 30 days #30 tabs 02/15/24 atorvastatin 40 mg tablet 40 mg PO QHS 30 days #30 tabs 02/15/24 Hospital Course Operations None Procedures 2-D Echocardiogram Summary of Care Provided Minutes Spent on Discharge: 32 Hospital Course: Per HPI: The patient is a 78 y/o F w/ PMHx: Hx Diverticulitis s/p partial colectomy with transitional ostomy with reversal, Hx of benign throat tumor status postresection, Possible CKD unclear type, Anxiety and Depression, GERD, OA, ARVIND, Former tobacco use who presents to the [facility] ED on 02/13/2024 with history of difficulty with memory impairment over the last approximate 5 days with inability to remember even simple things including her name, birthdate or Social Security number or even how to perform simple activities of daily living including closing the car door putting her seatbelt on with mild recent congestion but no upper respiratory illness symptoms beyond this prompting family to bring her in for evaluation. In the ED upon evaluation patient is able to give all the correct information and who is present notes that these symptoms have been waxing and waning. Currently he notes she seems more at her baseline and is able to give appropriate information. Workup in the ED included T97.7, heart 83, BP 165/72, respiratory rate 18, 100% on room air, CBC with WBC 4.8, hemoglobin 12.3, platelet 237 without marked shift, CMP with sodium 133, BUN/creatinine 15/1.12, GFR 50, glucose 117 otherwise unremarkable, CT of the brain with low-density in the left caudate head and basal ganglia possibly delivery representative of an acute ischemic infarct but uncertain, chest x-ray with no acute cardiopulmonary findings, UA not marked appearing, EKG with sinus bradycardia with no acute evidence of ischemia. Hospital Course: 1. Left CVA in the johnson radiata?78-year-old female presented to the hospital initially for thoughts of confusion however was found to have aphasia and demonstrated stroke on MRI. She was started on aspirin and Lipitor and has had some improvement in her symptoms according to family. Echo was obtained which showed a normal EF with a PASP of 20 mmHg and no diastolic dysfunction. She will require speech therapy on discharge and a prescription was signed for her. I discussed with her the possibility of discharge today and she expressed understanding of the risk and benefits of going home and would like to go home today. Will plan for discharge with aspirin as well as Lipitor, and outpatient neurological follow-up. Will also order a 30-day Holter monitor, she did not have any signs of A-fib while here in the hospital on telemetry. 2. Anxiety, depression, GERD are chronic medical conditions which complicates her care. Her home medications were continued where appropriate Physical Exam Narrative General: Alert, Oriented x3, Cooperative, No apparent distress HEENT: Atraumatic, PERRLA, EOMI, Normocephalic Oral: Moist Mucosa Neck: Supple, No JVD Lungs: Clear to auscultation, Normal air movement, No rhonchi, No wheeze, No rales Cardiovascular: Regular rate, Regular Rhythm, Normal S1, Normal S2, No murmurs Abdomen: Soft, Non Tender, Non-Distended, No Hepato-splenomegaly Extremities: No edema, Capillary Refill Less than 3 Seconds Skin: No rashes, No breakdown Musculoskeletal: No Tenderness to Palpation of Joints or Extremities Neurological: No focal neurological deficits, Motor Exam 5/5 strength throughout, Sensory exam intact to light touch and pain, NIH of 0-1 Psych/Mental Status: Normal Affect, Appropriate Weight / BMI Weight Weight: 148 lb 2.41 oz Body Mass Index (BMI) 28.0 ABG / Lab / Microbiology Data 02/14/24 03:50 02/14/24 03:50 Radiography Diagnostic Testing: Radiology Impression Echocardiogram 02/13/24 21:15 Interpretation Summary Normal LV size. Left ventricular systolic function is normal. The left ventricular ejection fraction is 65 %. Mild (1+) tricuspid valve insufficiency. Pulmonary artery systolic pressure is 28 mmHg. Bubble contrast study negative for right to left interatrial shunt. Ordering Physician: Sisi Long Referring Physician: JUDITH SHEPARD Performed By: Megan Solis and Student D/C Instructions Discharge Diet: Low fat / Low cholesterol Call your doctor if you observe: Fever of 101 or Higher, Shortness of breath, Dizziness, Fainting spells, Swelling in the ankles, Chest pain and Increased palpitations (irregular heartbeat) Meaningful Use Info Meaningful Use Meaningful Use Diagnoses (Choose all that apply): None applicable Ischemic Stroke Statin Dosing Therapy Reference: STATIN DOSE THERAPY REFERENCE: * Patients > 75 years receive moderate or high dose statin therapy. * Patients 75 years or YOUNGER should receive HIGH intensity statin dose unless contraindicated. You will be required to document reason for non-treatment if statin daily dose does not meet guidelines. HIGH DOSE STATIN THERAPY DAILY Atorvastatin > than or = to 40 mg Rosuvastatin > than or = to 20 mg Amlodipine + Atorvastatin > than or = to 2.5/40 mg Ezetimibe + Simvastatin 10/80 mg Simvastatin 80mg Discharge Plan Admission Admit Date/Time: 02/13/24 20:01 Attending Provider: Leodan Pozo Primary Care Provider: Judith Shepard Consulting Providers: Momo Lock; Nestor Anglin; Suze Patel; Angeles Nevarez; Taryn Angel; Armando Leon; Marilin Celis; Vicente Lopez; Romeo Desir; Cindy Graves; Juanpablo Anderson; Parvin Timmons; Consuelo Jewell; Eunice Raymundo; Cuauhtemoc Mckeon; Juhi Starkey; Silvio العراقي; Carmella Viveros; Joana Potter; Sisi Long Instructions Additional Instructions / Restrictions: Obtain referral for outpatient neurology from your PCP Discharge Orders/Prescriptions Prescriptions: New aspirin 81 mg Tablet,Chewable 81 mg PO BREAKFAST 30 Days Qty: 30 0RF atorvastatin 40 mg Tablet 40 mg PO QHS 30 Days Qty: 30 0RF Continued ergocalciferol (vitamin D2) 1,250 mcg (50,000 unit) capsule 1,250 mcg PO 2XW Patient Comments: TAKE 1 CAPSULE BY MOUTH TWICE A WEEK FOR 90 DAYS citalopram [Celexa] 20 mg tablet 40 mg PO DAILY Patient Comments: Only takes 3-4 times a week temazepam 30 MG capsule 30 mg PO QHS Patient Comments: sleep sodium chloride 1 gram tablet 1,000 mg PO .COMPLEX Rx Instructions: 1,000 mg orally 5 times daily; cholecalciferol (vitamin D3) 75 mcg (3,000 unit) tablet 75 mcg PO DAILY Other Ambulatory Orders: 30 Day Event Recorder Preventi (Routine) Timeframe: 1 Day Facility: [facility] - Location: Cardiovascular Services Ordered By: Dr. Leodan Pozo Referrals / Follow Up: Judith Shepard NATURAL GAS FIELD PROCESSING SUPERVISOR-C [Primary Care Provider] - Within 1 Week Ericka Akhtar NP, NATURAL GAS FIELD PROCESSING SUPERVISOR-C [Non-Staff] - Disposition Disposition (needs filled in before D/C Order can be placed): Home, Self Care Charges/Coding Visit Charges Inpatient E&M: 19846 Disch Hosp >30min
== END 2024-02-15 11:25 | disposition home or self-care (01) | DRG 66 ==
LOC: ED 20:09 → PCU 20:24
PROVIDERS: Admitting Provider Family Medicine; Emergency Provider Emergency Medicine; PCP Nurse Practitioner Family; Visit Provider Family Medicine
DX: I63.81 Other cerebral infarction due to occlusion or stenosis of small artery (principal); F32.A Depression, unspecified; N18.30 Chronic kidney disease, stage 3 unspecified; G47.33 Obstructive sleep apnea (adult) (pediatric); M19.90 Unspecified osteoarthritis, unspecified site; K58.9 Irritable bowel syndrome, unspecified; K21.9 Gastro-esophageal reflux disease without esophagitis; G51.0 Bell's palsy; F41.9 Anxiety disorder, unspecified; R41.0 Disorientation, unspecified; Z87.891 Personal history of nicotine dependence; Z79.82 Long term (current) use of aspirin; R03.0 Elevated blood-pressure reading, without diagnosis of hypertension; Z87.19 Personal history of other diseases of the digestive system; Z99.89 Dependence on other enabling machines and devices
CPT/HCPCS: 36415; 70450; 70496; 70498; 70551; 71046; 80048; 80053; 80061; 80076; 81001; 82962; 83036; 83735; 84443; 85025; 92523; 93005; 93306; 94762; 97162; 97166; 97802; 99285; J7030; Q9967; A4216

== ENCOUNTER → 2024-12-05 | Outpatient (CLI) | payer MEDICARE, SELFPAY ==
--- NOTE | 2024-12-05 14:35 | BI_ITS ---
EXAM: SCRN MAMM (CAD)W/JONATHAN BILAT DATE: 12/05/2024 CLINICAL HISTORY: F, Age 79 y/o , SCREENING FOR MAMMO BREAST CANCER RISK ASSESSMENT: Does not appear to have been calculated. TECHNIQUE: Bilateral screening digital breast tomosynthesis with 2D and 3D images. Computer aided detection. COMPARISON: Prior exam(s) dated 10/26/2023 and 09/22/2022. FINDINGS: TISSUE DENSITY: The breast tissue is composed of scattered area of fibroglandular density. Bilateral Breast Mammographic Findings: There are no suspicious masses, suspicious clustered microcalcifications, architectural distortion or secondary signs of malignancy identified in either breast. Benign round microcalcifications are seen in both breasts. A stable 6 mm nodular masslike density is seen in the lateral, far posterior aspect of the right breast. A radiopaque clip is seen in the superior medial aspect of the left breast. The biopsy was benign. Post biopsy site appears stable. A stable 1 cm masslike density in the superior outer, middle 3rd aspect of the left breast is noted. BI/SCRN MAMM (CAD)W/JONATHAN BILAT IMPRESSION: Right Breast: BIRADS 2 BENIGN FINDING. Left Breast: BIRADS 2 BENIGN FINDING. OVERALL FINAL ASSESSMENT: BIRADS 2 BENIGN FINDING RECOMMENDATION: Routine annual follow-up in 1 Year A letter with findings and recommendations will be mailed to the patient. Reading Location: [id number]
== END | disposition home or self-care (01) ==
LOC: OPBI 14:22
PROVIDERS: PCP Nurse Practitioner Family; Referring Provider Nurse Practitioner Family; Visit Provider Nurse Practitioner Family
DX: Z12.31 Encounter for screening mammogram for malignant neoplasm of breast (principal)
CPT/HCPCS: 77063; 77067

== ENCOUNTER 2025-06-07 15:00 | Outpatient (RCR) | payer MEDICARE, SELFPAY ==
--- NOTE | 2025-05-29 14:09 | HP.PTEVAL_ITS ---
Patient's Visit Information Visit Information Visit Information: SAMREEN VELÁZQUEZ is a 79 year old F referred to Physical Therapy by CHRISTIANNE Lopez with a diagnosis of Ataxia, vertigo, inflammatory arthritis. Date of Evaluation: 05/29/25 Physical Therapist: LUIZA Wytat Visit Plan Frequency: 2x /Week Duration: 2 Months Plan: 2X// week for 4-8 weeks for balance (foam and no foam), gait training (pt likes to propulse FW with gait, increase veering and can not look any direction without veering), LE strength, functional strength with HEP Subjective Subjective: Pt has psoriatic arthritis, trouble walking and vertigo. She has been falling 1X/ week over the last 2 weeks, total of 3 times. One caused her to have to get stitches. Her blamed the sandles and she still fell. She does get dizzy a lot. She can get dizzy just sitting she thinks that she is more lightheaded. She can get lightheaded with walking. She has dizziness driving, in the shower. She does not think her dizziness is because of sit to stand, rolling over in bed etc. She has no warning that she is going to fall and she falls FW. She has steps to the basement but not allowed to go down their without her and she has 2 railings. Pt feels a funniness and dizziness in her head. At the end of the session the patient stated, "I feel like I am going to have another stroke." When questioned more she could not tell me why she feels that way, she just does. She reports no pain, no anxiety just a funny feeling, off feeling, dizziness and falling for no reason over the last 2 weeks. Told her that I was going to report this to her Dr office as she has not told them this. Pain hip pain B: Pain Intensity (Out of 10): 3 B knee pain: Pain Intensity (Out of 10): 3 Objective Objective: Gait: Walks with slightly decreased stride length and increase veering with increase propulsion FW with gait several times today with walking back and forth in the clinic. Pt always feels like she is falling FW. LE MMT: R hip flex 6 and L 8 R knee ext 20.9 and L 18.7 R knee flex 10.4 and L 11.9 Standing heel and toe raises: Pt is able to do with UE support but only 1/2 normal ROM FGA: 9 ENCOURAGED PT TO USE A CANE due to risk of falls. She says that she has one but has not brought it out. Sit to stand: able to stand on first attempt but needs UE to help he get up. Some immed unsteadiness upon standing CATSIB 97 Fascial expressions even, no slurring words, UE even within available ROM Balance/Special Test Scores Functional Gait Assessment Score: 9 % Disability: 70.0000 CATSIB Score (Max score 120 seconds): 97 Dizziness Score: 50 Goals Goal 1:: I HEP Goal Time Frame: 6-8 Weeks Goal 2:: Increase balance (at eval CATSIB was 97) Goal Time Frame: 6-8 Weeks Goal 3:: Increase FGA (at eval score was 9) Goal Time Frame: 6-8 Weeks Goal 4:: Be able to walk 250 feet with being able to control her uncontrolled propulsion FW during gait Goal Time Frame: 6-8 Weeks Goal 5:: Increase LE strength (at the time of the eval: LE MMT: R hip flex 6 and L 8 R knee ext 20.9 and L 18.7 R knee flex 10.4 and L 11.9). Goal Time Frame: 6-8 Weeks Rehabilitation Potential Rehabilitation Potential: Good Anticipated Interventions Patient/Client Instruction: Educate patient on: Condition and Plan of Care For the Purpose of:: To improve muscle performance and motor function, To improve ability to perform ADL's, To increase tolerance to activity/condition/position, To improve performance and independence with ADL's, To decrease level of supervision to perform tasks, To improve ability of physical actions for home/community/work/leisure, To improve gait and locomotor functions, To improve endurance, To improve balance and To improve safety with gait Therapeutic Exercise to Include: Strength training, Endurance training, Balance training, Gait and locomotor training and Neuromotor development For the Purpose of:: To improve muscle performance and motor function, To improve ability to perform ADL's, To increase tolerance to activity/condition/position, To improve performance and independence with ADL's, To decrease level of supervision to perform tasks, To improve ability of physical actions for home/community/work/leisure, To improve gait and locomotor functions, To improve health of tissue, To increase flexibility/ROM, To improve endurance, To improve balance and To improve safety with gait Functional Training to Include: Gait training For the Purpose of:: To improve muscle performance and motor function, To improve ability to perform ADL's, To increase tolerance to activity/condition/position, To improve performance and independence with ADL's, To decrease level of supervision to perform tasks, To improve ability of physical actions for home/community/work/leisure, To improve gait and locomotor functions, To improve endurance, To improve balance and To improve safety with gait Text: Thank you for the opportunity to evaluate your patient. For Medicare and Medicare HMO plans, please review the plan of care and approve it. It will need to be FAXED BACK to us at [phone] for Medicare purposes. For Medicare only, by signing this I certify the plan of care. Please let me know if there are questions or concerns regarding this plan of care. Physician Signature: Date:
--- NOTE | 2025-05-30 08:12 | HP.OTEVAL_ITS ---
Patient's Visit Information Visit Information Visit Information: SAMREEN VELÁZQUEZ is a 79 year old F, referred to Occupational Therapy by CHRISTIANNE Lopez, with a diagnosis of OA. Date of Evaluation: 05/29/25 Occupational Therapist: Bhargavi Watters, JADE/Irineo, CHT Subjective Subjective: This 79 year old female was seen for OT eval with dx of OA, vertigo - frequent falls. pt states she was in the garage, constitution party and at the neighbors when she had her falls- she is seeing Physical therapy for that. Feels she is seeing OT for equipment to help her with her hands. pt states she has noticed her right thumb has become more compromised with daily use. 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 pt states she has no use of her thumbs to help her open any bottle top, jars or pull up zippers. 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 Goal:: pt will demo understanding of using ad. eq. for daily tasks by end of 1st session. pt will demo understanding of dx and joint deformity by end of 1st session. 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 therapist ed. pt on ad. equipment for opening jars, pop and can tops, as well as using barrientos ring for zippers to support IND with daily tasks. Therapist discussed with pt possible use of supportive brace to decrease MP hyper ext. pt not receptive at this time. pt to call and schedule apt if she would like splint and or need more advice on use of adaptive eq. Rehabilitation Potential: Questionable Anticipated Interventions Anticipated Interventions: Orthoses, Joint Protection/Energy Conservation, Fine Motor Coord/Raciel, Education re assistive Equipment, Education re Diagnosis and Home Program Visit Plan General Plan: therapist advised pt in ad. eq. 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 therapist advised pt TEXT: Thank you for the opportunity to evaluate your patient. For Medicare and Medicare HMO plans, please review the plan of care and approve it. It will need to be FAXED BACK to us at [phone] for Medicare purposes. Please let me know if there are questions or concerns regarding this plan of care. Physician Signature: Date:
--- NOTE | 2025-07-18 13:40 | HP.PT.NRP ---
Patient Information Patient Information: SAMREEN VELÁZQUEZ was seen in my office for initial evaluation on 05/29/25. The following Plan of Care was established for this patient: POC Established Initial Frequency: 2x /Week Initial Duration: 2 Months Anticipated Interventions Patient/Client Instruction: Educate patient on: Condition and Plan of Care For the Purpose of:: To improve muscle performance and motor function, To improve ability to perform ADL's, To increase tolerance to activity/condition/position, To improve performance and independence with ADL's, To decrease level of supervision to perform tasks, To improve ability of physical actions for home/community/work/leisure, To improve gait and locomotor functions, To improve endurance, To improve balance and To improve safety with gait Therapeutic Exercise to Include: Strength training, Endurance training, Balance training, Gait and locomotor training and Neuromotor development For the Purpose of:: To improve muscle performance and motor function, To improve ability to perform ADL's, To increase tolerance to activity/condition/position, To improve performance and independence with ADL's, To decrease level of supervision to perform tasks, To improve ability of physical actions for home/community/work/leisure, To improve gait and locomotor functions, To improve health of tissue, To increase flexibility/ROM, To improve endurance, To improve balance and To improve safety with gait Functional Training to Include: Gait training For the Purpose of:: To improve muscle performance and motor function, To improve ability to perform ADL's, To increase tolerance to activity/condition/position, To improve performance and independence with ADL's, To decrease level of supervision to perform tasks, To improve ability of physical actions for home/community/work/leisure, To improve gait and locomotor functions, To improve endurance, To improve balance and To improve safety with gait Last Seen Last Seen: This patient was last seen in our office 06/07/25. Pertinent comments regarding their Physical therapy will appear below: SERGEY PT At this point I will be discontinuing this patient from physical therapy. I would be happy to see this patient again in the future if found appropriate by the physician. Thank you! Vandana iRncon, LUIZA Balance/Gait/Functional tests Balance/Special Test Scores Functional Gait Assessment Score: 9 % Disability: 70.0000 CATSIB Score (Max score 120 seconds): 97 Dizziness Score: 50
== END 2025-06-07 19:00 | disposition home or self-care (01) ==
LOC: PT 15:00
PROVIDERS: PCP Nurse Practitioner Family; Referring Provider Nurse Practitioner Family; Visit Provider Nurse Practitioner Family
DX: M19.90 Unspecified osteoarthritis, unspecified site (principal); R42 Dizziness and giddiness; R27.0 Ataxia, unspecified
CPT/HCPCS: 97110; 97162; 97166

== ENCOUNTER → 2025-08-21 | Outpatient (CLI) | payer MEDICARE, SELFPAY ==
[2025-08-21 15:58] LABS: AST(SGOT) 20 U/L (<=31); Alanine Aminotransfer ALT/SGPT 13 U/L (<=34); Albumin, Serum 4.1 g/dL (3.4-4.8); Alkaline Phosphatase 70 U/L (35-104); Anion Gap 12 (5-15); BUN 27 mg/dL (4-19); BUN/Creat Ratio 25.6 RATIO (10-20); Calcium,Total 9.4 mg/dL (7.6-11.0); Carbon Dioxide 25.2 mmol/L (21.0-32.0); Chloride 101 mmol/L (98-108); Globulin 2.7 g/dL (2.2-4.2); Glucose 148 mg/dL (70-99); Potassium 4.4 mmol/L (3.3-5.1)
== END | disposition home or self-care (01) ==
LOC: CIMLAB 13:54
PROVIDERS: PCP Nurse Practitioner Family; Referring Provider Nurse Practitioner Family; Visit Provider Nurse Practitioner Family
DX: E87.1 Hypo-osmolality and hyponatremia (principal)
CPT/HCPCS: 36415; 80053